=== PATIENT | male | born 1955 | race Caucasian/White ===

== ENCOUNTER 2023-02-17 05:35 | Emergency (ER) | payer OTHER ==
--- OUTSIDE RECORDS SUMMARY | 2023-02-17 05:39 | XMS REPORT | Clinical Summary ---
:1955 Author Organization [facility] MD [facility] Address [address] [place] [address] Care Team Providers Name Role Phone Luis E Woody MD Primary Care Provider Tim Au MD Unavailable Allergies No known active allergies Medications Medication Sig Dispensed Refills Start End Date Status Date multivitamin tab Take by mouth. 0 Active tablet Lacto 0 Active 51-B.animal,bifid-in 0 ulin (Fortify Probiotic) 50 billion cell-50 mg cpDR ibuprofen Take by mouth. 0 Activ e (ADVIL,MOTRIN) 200 mg tablet pseudoephedrine Take by mouth 0 Active (SUDAFED) 60 mg every 4 (four) tablet hours as needed for congestion. fexofenadine Take by mouth. 0 Ac tive (GILBERTO) 180 mg tablet sulfamethoxazole-tri TAKE 1 TABLET 0 Active methoprim (BACTRIM BY MOUTH TWICE 3 DS) 800 mg-160 mg A DAY FOR 10 per tablet DAYS sildenafil (Revatio) Take 90 tablet 11 Active 20 mg Sildenafil 3 tabletIndications: 20mg PO daily, Erectile dysfunction plus can add following radical upto 4pills prostatectomy (80mg) PO every 72 hours apart prn. Saccharomyces Take 1 capsule 0 10/09/19 D iscontinued boulardii (250 mg) by 23 (Therapy (FLORASTOR) 250 mg mouth twice completed) capsule daily. methocarbamol Take 1 tablet 10 tablet 0 01/23/20 Di scontinued (Robaxin-750) 750 mg (750 mg) by 3 23 tabletIndications: mouth every 8 Adenocarcinoma of (eight) hours prostate as needed for muscle spasms. traMADol (Ultram) 50 Take 1 tablet 10 tablet 0 01/22 Discontinued mg (50 mg) by 3 23 tabletIndications: mouth every 6 Adenocarcinoma of (six) hours as prostate needed for severe pain. senna-docusate Take 1 tablet 30 tablet 0 01/23/20 D iscontinued (Senna Plus) 8.6 by mouth 2 3 23 mg-50 mg (two) times a tabletIndications: day as needed Adenocarcinoma of for prostate constipation. hyoscyamine sulfate Dissolve 1 30 tablet 0 01/23/20 Discontinued (ANASPAZ) 0.125 mg tablet (0.125 3 23 disintegrating mg) on the tabletIndications: tongue every 4 Adenocarcinoma of (four) hours prostate as needed for cramping. Active Problems Problem Noted Date Adenocarcinoma of prostate 05/31/2021 Cancer Staging: Clinical stage from 10/09: Stage IIB (cT2a, cN0, cM0, PSA: 3.2, Grade Group: 2) - Signed by Tim Au MD on 10/09/2022 Elevated blood pressure reading with no diagnosis of h ypertension 08/24/2016 Overview: primarily due to work stress, generally resolved Last Assessment & Plan: Does not take medication , continue to m onitor and follow-up with primary care provider Hypertension 08/24/2016 Overview: primarily due to work stress, generally resolved Bradycardia 12/08/2015 Irregular heart beat 11/23/2015 Overview: bradycardia with sinus pause Last Assessment & Plan: Takes no medications. 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 Acute postoperative pain Encounters Date Type Specialty Care Team Description 01/27/2023 Hospital Encounter Lab Michelet Mitchell Adenocarc [place] MD prostate 01/22/2023 Consult Urology Remington Vizcaino MD Erectile dysfu nction following radical prostatectomy (Primary Dx); Adenocarcinoma of prostate 01/22/2023 Hospital Encounter Lab Kandathil, Urinary t ract Rajesh, PA infection, not otherwise speci fied 01/22/2023 Travel 01/21/2023 Orders Only Urology Kandathil, Urinary tract Rajesh, PA infection, not otherwise speci fied (Primary Dx) 12/17/2022 Nurse Triage Sowmya Fajardo RN 12/15/2022 Surgery Michelet Mitchell ROBOTIC QUINTIN Main MD PROSTATECTOMY 12/15/2022 Anesthesia Event Jade Faye MD Lumsden, Sarah, MD 12/15/2022 Ancillary Procedure Calin Shirley MD 12/15/2022 - Hospital Encounter Uro/Ortho/GI Michelet Mitchell Adenocarc inoma of 12/16/2022 MD Jose David prostate (Prima ry Dx) 12/15/2022 Travel 12/12/2022 Anesthesia Event Anesthesiology Angela Hood MA 12/10/2022 Hospital Encounter Cardiology Moise Bauer Pre op cardiovascular MD Raisa examination 12/10/2022 Travel 12/09/2022 POEM Appointments Anesthesiology Kandathil, Pre op c ardiovascular examination (Primary Dx); Rajesh PA Adenocarcinoma of prostate 12/09/2022 Office Visit Urology Michelet Mitchell MD prostate (Prima ry Dx) 12/09/2022 Hospital Encounter Lab Kandathil, Adenocarc inoma of Rajesh, PA prostate 12/09/2022 Travel 10/28/2022 Prep for Surgery Urology Kandathil, Adenocarcin earline of Rajesh, PA prostate (Prima ry Dx) 10/28/2022 Orders Only Urology Kandathil, Adenocarcinoma of Rajesh, PA prostate (Prima ry Dx) 10/27/2022 Telemedicine Urology Michelet Mitchell MD prostate 10/15/2022 Telephone Urology Anali Estrada PA 10/13/2022 Telephone Urology Anali Estrada PA 10/09/2022 Hospital Encounter Radiation Oncology Chiara Au nocarcinoma of MD Tim prostate 10/09/2022 Travel 10/03/2022 Follow-Up Urology Luis E Woody, Adenocarcinom a of prostate 10/03/2022 Travel 10/02/2022 Ancillary Procedure Radiology Anali Estrada Adenocar cinoma of LOYDA Fuentes prostate 10/02/2022 Hospital Encounter Lab Anali Estrada Adenocarc inoma of LOYDA Fuentes prostate 10/02/2022 Travel 04/04/2022 Hospital Encounter Lab Anali Estrada Adenocarc inoma of LOYDA Fuentes prostate 04/04/2022 Office Visit Urology Luis E Woody, Adenocarcinom a of prostate 04/04/2022 Orders Only Urology Anali Estrada PA 04/04/2022 Travel 02/25/2022 Orders Only Survivorship Anali Estrada Adenocarcinoma of LOYDA Fuentes prostate (Prima ry Dx) after 02/17/2022 Surgical History Surgery Date Site/Laterality Comments COLONOSCOPY 05/24/2020 - 06/23/2020 [place] L[place] SURG [id number] 12/15/2022 Abdomen/N/A Proc edure: ROBOTIC RAD W/NRV SPARING ROBOT ASSISTED PROSTATECTOMY; Surgeon: Michelet Mitchell MD; Location: [place]; Service: UROLOGY Medical History Medical History Date Comments Hypertension 2016 primarily due to wor k stress, generally resolved Irregular heart beat November 2015 bradycardia with si nus pause Loss of sense of smell over last several years not complete loss, but impaired Allergic rhinitis ~1979 Polyp of colon ~2019 found during colonos copy. Also found lump on prosta te Genital herpes simplex ~1988? no sores in over 20-25 years Herpes zoster ~1978 single outbreak Malignant neoplasm of prostate 2019 Family History Medical History Relation Name Comments Prostate cancer Father Jeff Szymanski diagnosed in 70 s, had brachytherapy; d ied of other causes Leukemia Mother Yulissa Szymanski adult onset in m id-60s Prostate cancer Paternal Uncle 1 Frank Szymanski Prostate cancer Paternal Uncle 2 Jovani Szymanski decided not to treat and later of it Prostate cancer Paternal Uncle 3 Arias Szymanski Relation Name Status Comments Father Jeff Szymanski Mother Yulissa Szymanski Paternal Uncle 1 Frank Szymanski Paternal Uncle 2 Jovani Szymanski Paternal Uncle 3 Arias Szymanski Social History Tobacco Use Types Packs/Day Years Used Date Smoking Tobacco: Never Smokeless Tobacco: Never Alcohol Use Standard Drinks/Week Comments Yes 2 (1 standard drink = 0.6 oz pure alcoho l) Sex Assigned at Date Recorded Male 05/21/2021 8:15 PM CDT Job Start Date Occupation Industry Not on file Not on file Not on file COVID-19 Exposure Response Date Recorded In the last 10 days, have you been in contact with No / Unsu re 01/22/2023 9:47 AM CDT someone who was confirmed or suspected to have Coronavirus/COVID-19? Obstetrics History Last Filed Vital Signs Vital Sign Reading Time Taken Comments Blood Pressure 138/80 01/22/2023 9:58 AM CDT Pulse 65 01/22/2023 9:58 AM CDT Temperature 37.2 C (99 F) 01/22/2023 9:58 AM CDT Respiratory Rate 16 01/22/2023 9:58 AM CDT Oxygen Saturation 97% 01/22/2023 9:58 AM CDT Inhaled Oxygen Concentration - - Weight 91.2 kg (201 lb 1 oz) 01/22/2023 9:51 AM CDT Height 186 cm (6' 1.23") 01/22/2023 9:51 AM CDT Body Mass Index 26.36 01/22/2023 9:51 AM CDT Plan of Treatment Date Type Specialty Care Team Description 03/19/2023 Procedure visit Urology Remington Vizcaino MD [address] [place], [place] [address] (Wo rk) 03/24/2023 Follow-Up Urology Michelet Mitchell MD [address] [place], [place] [address] (Wo rk) Health Maintenance Due Date Last Done Comments COVID-19 Vaccination (3 - Moderna series) 12/22/20202020, 09/29/2020 Procedures Procedure Name Priority Date/Time Associated Diagnosis Comme nts PROSTATE SPECIFIC Routine 01/27/2023 10:39 Adenocarcinoma of R esults for this ANTIGEN AM CDT prostate procedure are i n the results section. URINALYSI W/REFLEX Routine 01/22/2023 8:59 Urinary tract Resul ts for this CULTURE AM CDT infection, not procedure are in otherwise specified the resu lts section. ANION GAP AM 12/16/2022 3:40 Results for this AM CDT procedure are i n the results section. .GLOMERULAR FILTRATION AM 12/16/2022 3:40 Re sults for this RATE AM CDT procedure are i n the results section. SERUM CREATININE AM 12/16/2022 3:40 Results for this AM CDT procedure are i n the results section. HEMATOCRIT AM 12/16/2022 3:40 Results for this AM CDT procedure are i n the results section. HEMOGLOBIN AM 12/16/2022 3:40 Results for this AM CDT procedure are i n the results section. GLUCOSE, RANDOM AM 12/16/2022 3:40 Results f or this AM CDT procedure are i n the results section. SERUM CREATININE AM 12/16/2022 3:40 AM CDT BLOOD UREA NITROGEN AM 12/16/2022 3:40 Resul ts for this AM CDT procedure are i n the results section. CARBON DIOXIDE LEVEL AM 12/16/2022 3:40 Resu lts for this AM CDT procedure are i n the results section. CHLORIDE LEVEL AM 12/16/2022 3:40 Results fo r this AM CDT procedure are i n the results section. POTASSIUM LEVEL AM 12/16/2022 3:40 Results f or this AM CDT procedure are i n the results section. SODIUM LEVEL AM 12/16/2022 3:40 Results for this AM CDT procedure are i n the results section. HEMATOCRIT Routine 12/15/2022 10:50 Results for this AM CDT procedure are i n the results section. HEMOGLOBIN Routine 12/15/2022 10:50 Results for this AM CDT procedure are i n the results section. PATHOLOGY SURGICAL Routine 12/15/2022 9:45 Adenocarcinoma of R esults for this INTERPRETATION AM CDT prostate procedure are in the results section. PERIPHERAL BLOCK Routine 12/15/2022 7:10 Results for this AM CDT procedure are i n the results section. ROBOTIC ASSISTED 12/15/2022 6:28 Adenocarcinoma of PROSTATECTOMY AM CDT prostate Special Needs 0500@LR TMP INTERPRETATION Routine 12/15/2022 5:44 Result s for this ANTIBODY SCREEN AM CDT procedure ar e in NEGATIVE the results section. CLOT EXPIRATION DATE Routine 12/15/2022 5:44 Resu lts for this AM CDT procedure are i n the results section. ANTIBODY SCREEN Routine 12/15/2022 5:44 Results f or this AM CDT procedure are i n the results section. ABORH Routine 12/15/2022 5:44 Results for this AM CDT procedure are i n the results section. TYPE AND SCREEN Routine 12/15/2022 5:44 AM CDT INTRAOPERATIVE US Routine 12/15/2022 5:28 Results for this AM CDT procedure are i n the results section. EKG, 12-LEAD Routine 12/10/2022 Pre op cardiovascular (SCHEDULED) examination URINALYSI W/REFLEX Routine 12/09/2022 10:23 Adenocarcinoma of Results for this CULTURE AM CDT prostate procedure are i n the results section. TMP INTERPRETATION Routine 12/09/2022 10:12 Resul ts for this ANTIBODY SCREEN AM CDT procedure ar e in NEGATIVE the results section. CLOT EXPIRATION DATE Routine 12/09/2022 10:12 Res ults for this AM CDT procedure are i n the results section. ANTIBODY SCREEN Routine 12/09/2022 10:12 Adenocarcinoma of Res ults for this AM CDT prostate procedure are i n the results section. ABORH Routine 12/09/2022 10:12 Adenocarcinoma of Result s for this AM CDT prostate procedure are i n the results section. FRACTIONATED BILIRUBIN Routine 12/09/2022 10:12 Adenocarcinoma of Results for this AM CDT prostate procedure are i n the results section. TOTAL PROTEIN Routine 12/09/2022 10:12 Adenocarcinoma of Resul ts for this AM CDT prostate procedure are i n the results section. ASPARTATE Routine 12/09/2022 10:12 Adenocarcinoma of Result s for this AMINOTRANSFERASE AM CDT prostate procedure a re in the results section. ALANINE Routine 12/09/2022 10:12 Adenocarcinoma of Result s for this AMINOTRANSFERASE AM CDT prostate procedure a re in the results section. ALKALINE PHOSPHATASE Routine 12/09/2022 10:12 Adenocarcinoma o f Results for this AM CDT prostate procedure are i n the results section. ALBUMIN LEVEL Routine 12/09/2022 10:12 Adenocarcinoma of Resul ts for this AM CDT prostate procedure are i n the results section. CALCIUM LEVEL TOTAL Routine 12/09/2022 10:12 Adenocarcinoma of Results for this AM CDT prostate procedure are i n the results section. .GLOMERULAR FILTRATION Routine 12/09/2022 10:12 Adenocarcinoma of Results for this RATE AM CDT prostate procedure are i n the results section. SERUM CREATININE Routine 12/09/2022 10:12 Adenocarcinoma of Re sults for this AM CDT prostate procedure are i n the results section. ELECTROLYTE PANEL Routine 12/09/2022 10:12 Adenocarcinoma of R esults for this AM CDT prostate procedure are i n the results section. BLOOD UREA NITROGEN Routine 12/09/2022 10:12 Adenocarcinoma of Results for this AM CDT prostate procedure are i n the results section. GLUCOSE LEVEL Routine 12/09/2022 10:12 Adenocarcinoma of Resul ts for this AM CDT prostate procedure are i n the results section. MANUAL DIFFERENTIAL Routine 12/09/2022 10:12 Adenocarcinoma of Results for this AM CDT prostate procedure are i n the results section. Results CBC Routine 12/09/2022 10:12 Adenocarcinoma of Result s for this AM CDT prostate procedure are i n the results section. TYPE AND SCREEN Routine 12/09/2022 10:12 Adenocarcinoma of AM CDT prostate PROSTATE SPECIFIC Routine 12/09/2022 10:12 Adenocarcinoma of R esults for this ANTIGEN AM CDT prostate procedure are i n the results section. COMPREHENSIVE METABOLIC Routine 12/09/2022 10:12 Adenocarcinom a of PANEL AM CDT prostate HEMOGLOBIN A1C Routine 12/09/2022 10:12 Adenocarcinoma of Resu lts for this AM CDT prostate procedure are i n the results section. COMPLETE BLOOD COUNT W/ Routine 12/09/2022 10:12 Adenocarcinom a of DIFFERENTIAL AM CDT prostate CONFIRM ABORH TYPE Routine 12/09/2022 10:11 Resul ts for this AM CDT procedure are i n the results section. 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 PROSTATE SPECIFIC Routine 04/04/2022 11:28 Adenocarcinoma of R esults for this ANTIGEN AM CDT prostate procedure are i n the results section. after 02/17/2022 Results PSA (01/27/2023 10:39 AM CDT)Only the most recent of4 resultswithin the time period is included. P athologist Signature PSA <0.1 0.0 - 4.0 [facility] ng/mL Comment: Results greater than 4519 ng/mL may not be reliable due to matrix effect with extended dilution as it exceeds the incubator operator's recommended limit. Caution should be exercised when interpreting such hue ues and done in conjunction with clinica l context. Testing Performed at [facility] Bld[facility], [address], [address], [place] [address] PSA Indication Diagnostic [facility] Specimen Anatomical Collection Method Collection Time Receive d Time (Source) Location / / Volume Laterality Blood 01/27/2023 10:39 01/27/2023 AM CDT 10:52 AM CDT Michelet Mitchell MD LAB BLOOD ORDERABLES Performing Organization Address City/State/ZIP Code Phon e Number [facility] [address] [place] [address] [address] (ABNORMAL) Urinalysis with Reflex Culture (01/22/2023 8:59 AM CDT)Only the most recent of2 resultswithin the time period is included. athologist Signature UA Color Yellow [place] [facility] UA Appear Clear Clear [facility] UA Glucose NEG NEG mg/dL [facility] UA Bili NEG NEG [facility] UA Ketones NEG NEG mg/dL [facility] UA Spec Grav 1.035 1.003 - [facility] 1.035 [facility] UA Blood NEG NEG [facility] UA pH 6.0 5.0 - 9.0 [facility] UA Protein 20 (A) NEG mg/dL [facility] UA Urobilinogen NEG NEG [facility] UA Nitrite NEG NEG [facility] UA Leuk Est NEG NEG [facility] UA WBC <1 0 - 2 /HPF [facility] Comment: Some reporting parameters within the Uri nalysis test have changed due to the implementation of new instrumentation in the Main [place], allowing greater sensitivity of measurement. Urinalysis results rep orted by the [facility] using existing instrumentation, as well as Urinalysis t esting performed manually or by backup methodology at the [facility] will remain relatively unchanged. New reporting parameters and units will not be reported for all campuses. UA RBC <1 0 - 2 /HPF [facility] UA Mucous NOT SEEN Not Seen-Trace /HPF [facility] UA Bacteria NOT SEEN NOT SEEN /HPF [facility] UA Squam Epi NOT SEEN None-Occasional /HPF [facility] Specimen Anatomical Collection Method Collection Time Receive d Time (Source) Location / / Volume Laterality Urine 01/22/2023 8:59 AM 3 9:13 CDT AM CDT Rajesh SCALES URINE ORDERABLES Performing Organization Address City/State/ZIP Code Phon e Number [facility] Unless otherwise noted, [address] all lab tests performed by: Division of Pathology and Laboratory Medicine [address] [place] Glucose, Random (12/16/2022 3:40 AM CDT) athologist Signature Glucose Random 123 70 - 199 [facility] mg/dL [facility] Comment: Effective 03/19/16, the glucose reference intervals have been updated based on [place] [employer] guidelines (Standards of Medical Care in Diabetes 2016. Diabetes Care 2016; 39: S13-S22). Fasting blood glucose: Normal: 70-99 mg/dL Impaired fasting glucose (increased risk for diabetes or pre-diabetes): 100- 125 mg/dL Diabetes mellitus: >/=126 mg/dL Random blood glucose: Normal: 70-199 mg/dL Note: Random glucose >100 mg/dL is assoc iated with increased risk for diabetes Specimen Anatomical Collection Method Collection Time Receive d Time (Source) Location / / Volume Laterality Blood 12/16/2022 3:40 AM 3 4:43 CDT AM CDT Farida SCALES LAB BLOOD ORDERABLES Performing Organization Address City/State/ZIP Code Phon e Number [facility] Unless otherwise noted, [address] all lab tests performed by: Division of Pathology and Laboratory Medicine [address] Anion Gap (12/16/2022 3:40 AM CDT) athologist Signature Anion Gap 10 4 - 14 [facility] mEq/L [facility] Specimen Anatomical Collection Method Collection Time Receive d Time (Source) Location / / Volume Laterality Blood 12/16/2022 3:40 AM 3 4:43 CDT AM CDT Farida SCALES LAB BLOOD ORDERABLES Performing Organization Address City/State/ZIP Code Phon e Number [facility] Unless otherwise noted, [address] all lab tests performed by: Division of Pathology and Laboratory Medicine [address] [place] [address] .Serum Creatinine (12/16/2022 3:40 AM CDT)Only the most recent of2 resultswithin the time period is included. athologist Signature Creatinine 1.07 0.67 - 1.17 [facility] mg/dL [facility] Specimen Anatomical Collection Method Collection Time Receive d Time (Source) Location / / Volume Laterality Blood 12/16/2022 3:40 AM 4:43 CDT AM CDT Farida SCALES LAB BLOOD ORDERABLES Performing Organization Address City/State/ZIP Code Phon e Number [facility] Unless otherwise noted, [address] all lab tests performed by: Division of Pathology and Laboratory Medicine [facility] Glomerular Filtration Rate (12/16/2022 3:40 AM CDT)Only the most recent of2 resultswithin the time period is included. athologist Signature eGFR 77 >=60 [facility] mL/min/1.73 [facility] sq. m Comment: The eGFRcr is calculated with the 2020 KD-EPI creatinine equation using creatinine, patient's age, and sex for adults 18 years of age and older. Other factors, especially muscle mass, may affect accuracy and need to be considered. According to the Kidney Disease: Improvi ng Global Outcomes (KDIGO) CKD Work Group 2012 Clinical Practice Guideline, chronic kidney disease (CKD) is defined as the abnormalities of kidney structure or function, present for more than 3 months, with implications for health. CKD should be c lassified by cause, GFR category, and albuminuria category. KDIGO guidelines provide the following GFR categories Stage Description GFR mL/min/1.73 m2 G1* Normal or high >= 90 G2* Mildly decreased 60-89 G3a Mildly to moderately decreased 45-59 G3b Moderately to severely decreased 30- 44 G4 Severely decreased 15-29 G5 Kidney failure <15 *In the absence of evidence of kidney da mage, neither G1 nor G2 fulfill criteria for CKD. Specimen Anatomical Collection Method Collection Time Receive d Time (Source) Location / / Volume Laterality Blood 12/16/2022 3:40 AM 3 4:43 CDT AM CDT Farida Kessler Keyla SCALES LAB BLOOD ORDERABLES Performing Organization Address City/[facility]/ZIP [facility] Phon e Number [facility] Unless otherwise noted, [address] all lab tests performed by: Division of Pathology and Laboratory Medicine [address] [place] (ABNORMAL) Hemoglobin (12/16/2022 3:40 AM CDT)Only the most recent of2 results within the time period is included. athologist Signature Hgb 12.6 (L) 14.0 - 18.0 [facility] gm/dL [facility] Specimen Anatomical Collection Method Collection Time Receive d Time (Source) Location / / Volume Laterality Blood 12/16/2022 3:40 AM 3 4:39 CDT AM CDT Farida Kirbyalba SCALES LAB BLOOD ORDERABLES Performing Organization Address [facility] Phon e Number [facility] Unless otherwise noted, [address] all lab tests performed by: Division of Pathology and Laboratory Medicine [facility] [place] (ABNORMAL) Hematocrit (12/16/2022 3:40 AM CDT)Only the most recent of2 results within the time period is included. P athologist Signature Hct 37.2 (L) 40.0 - 54.0 [facility] % [facility] Specimen Anatomical Collection Method Collection Time Receive d Time (Source) Location / / Volume Laterality Blood 12/16/2022 3:40 AM 3 4:39 CDT AM CDT Farida Victoria SCALES LAB BLOOD ORDERABLES Performing Organization Address City/[facility] Phon e Number [facility] Unless otherwise noted, [address] all lab tests performed by: Division of Pathology and Laboratory Medicine [facility] [place] Blood Urea Nitrogen (12/16/2022 3:40 AM CDT)Only the most recent of2 results within the time period is included. athologist Signature BUN 19 6 - 23 [facility] mg/dL [facility] Specimen Anatomical Collection Method Collection Time Receive d Time (Source) Location / / Volume Laterality Blood 12/16/2022 3:40 AM 3 4:43 CDT AM CDT Farida SCALES LAB BLOOD ORDERABLES Performing Organization Address City/[facility]/ZIP Code Phon e Number [facility] Unless otherwise noted, [address] all lab tests performed by: Division of Pathology and Laboratory Medicine [address] [place] Sodium Level (12/16/2022 3:40 AM CDT) athologist Signature Sodium Lvl 136 136 - 145 [facility] mEq/L [facility] Specimen Anatomical Collection Method Collection Time Receive d Time (Source) Location / / Volume Laterality Blood 12/16/2022 3:40 AM 3 4:43 CDT AM CDT Farida SCALES LAB BLOOD ORDERABLES Performing Organization Address City/[facility]/ZIP Code Phon e Number [facility] Unless otherwise noted, [address] all lab tests performed by: Division of Pathology and Laboratory Medicine [address] [place] Potassium Level (12/16/2022 3:40 AM CDT) athologist Signature Potassium Lvl 4.4 3.5 - 5.1 [facility] mEq/L [facility] Specimen Anatomical Collection Method Collection Time Receive d Time (Source) Location / / Volume Laterality Blood 12/16/2022 3:40 AM 3 4:43 CDT AM CDT Farida SCALES LAB BLOOD ORDERABLES Performing Organization Address City/State/ZIP Code Phon e Number [facility] Unless otherwise noted, [address] all lab tests performed by: Division of Pathology and Laboratory Medicine [address] [place] Chloride Level (12/16/2022 3:40 AM CDT) P athologist Signature Chloride 104 98 - 107 [facility] mEq/L [facility] Specimen Anatomical Collection Method Collection Time Receive d Time (Source) Location / / Volume Laterality Blood 12/16/2022 3:40 AM 3 4:43 CDT AM CDT Farida Burgoshi SCALES LAB BLOOD ORDERABLES Performing Organization Address City/State/ZIP Code Phon e Number [facility] Unless otherwise noted, [address] all lab tests performed by: Division of Pathology and Laboratory Medicine [address] [place] [address] Carbon Dioxide Level (12/16/2022 3:40 AM CDT) athologist Signature CO2 22 22 - 29 [facility] mEq/L [facility] Specimen Anatomical Collection Method Collection Time Receive d Time (Source) Location / / Volume Laterality Blood 12/16/2022 3:40 AM 4:43 CDT AM CDT Farida SCALES LAB BLOOD ORDERABLES Performing Organization Address City/[facility]/ZIP Code Phon e Number [facility] Unless otherwise noted, [address] all lab tests performed by: Division of Pathology and Laboratory Medicine [address] [place] [address] Pathology Surgical Interpretation (12/15/2022 9:45 AM CDT) Component Value Ref Test Analysis Performed Pathologis t Range Method Time At Signature Submitted Adenocarcinoma of 12/30/2022 [facility] Clinical prostate [C61] 7:17 AM History CDT Diagnosis A: Prostate gland and seminal vesicles: 12/30/2022 [facility] Electronically PROSTATIC ADENOCARCINOMA, MARS SCORE 7 (3+4). (SEE COMMEN T) 7:17 AM signed by TUMOR CONFINED TO THE PROSTATE. CDT Jazmine Right and left seminal vesicles, no tumor present. MD Jayesh on Segments of right and left vasa deferentia, no tumor present . 12/30/2022 at 7:17 TUMOR EXTENDS TO THE MARGIN OF RESECTION. AM No lymphovascular invasion identified. PT Comment The prostate gland contains two foci of prostatic adenocarcinoma in the peripheral zone. 12/30/2022 [facility] 7:17 AM The dominant tumor focus [Gl francesco score 7 (3 + 4)] is located in the left anterior, left anterolateral, left lateral, left posterolateral and left posterior peripheral zone. This tumor focus measures 1. CDT 7 x 1.0 cm in the largest cr oss-sectional dimension and it is present in the four prostatic cross sections, extensively in the apex and focally in the base. In the left posterolateral surface and tanning wheel operator ior apex, this tumor focus e xtends focally (added length 1.5 mm) to the margin of resection. The second tumor focus [Channinga son score 7 (3 + 4)] is located in the right anterolateral, right lateral, right posterolateral and right posterior peripheral zone. This tumor focus measures 1.4 x 0.5 cm in the largest cross-sectional dimension and it is present in the four prostatic cross sections and focally in the base. The margin of resection for this tumor focus is free of tumor. Both tumor foci are confined to the prostate. Additional deeper sections from two blocks were examined. Synoptic PROSTATE GLAND: Radical Prostatectomy [facility] Checklist PROSTATE GLAND: RADICAL PROSTATECTOMY - All Specimens 7:17 AM 8th Edition - Protocol posted: 07/03/2021 CDT SPECIMEN Procedure: Radical prostatectomy TUMOR Histologic Type: Acinar adenocarcinoma Histologic Grade: Grade: Grade group 2 (Mars Score 3 + 4 = 7) Minor Tertiary Pattern 5 (less than 5%): Not applicable Percentage of Pattern 4: 6 - 10% Intraductal Carcinoma (IDC): Not identified Cribriform Glands: Not identified Treatment Effect: No known presurgical therapy TUMOR QUANTITATION: Greatest Dimension of Dominant Nodule (Millimeters): 17 mm Additional Dimension of Dominant Nodule (Millimeters) : 10 mm Location of Dominant Nod ule: left anterior, left anterolateral, left lateral, left posterolateral and left posterior peripheral zone Extraprostatic Extension (EPE): Not identified Urinary Bladder Neck Invasion: Not identified Seminal Vesicle Invasion: Not identified Lymphovascular Invasion: Not Identified MARGINS Margin Status: Invasive carcinoma present at margin Linear Length of Margin(s) Involved by Carcinoma: 1 .5 mm Margin(s) Involved by In vasive Carcinoma: Left postero-lateral (neurovascular bundle) Margin(s) Involved by Invasive Carcinoma: Posterior apical REGIONAL LYMPH NODES Regional Lymph Node Status: Not applicable (no regional lymph nodes submitted or found) PATHOLOGIC STAGE CLASSIFICATION (pTNM, AJCC 8th Edition) Reporting of pT, pN, and (when applicable) pM categories is based on information available to the pathologist at the time the report is issued. As per the AJCC (Chapter 1, 8th Ed.) it is the managin g physician s responsibility to establish the final pathologic stage based upon all pertinent information, including but potentially not limited to this pathology report. TNM Descriptors: m (multiple) Primary Tumor (pT): pT2 pN Category: pN not assigned (no nodes submitted or fo und) Gross A: 12/30/2022 [facility] Description Prostate gland and seminal v esicles, prostate gland and seminal vesicles -- or 18: 7:17 AM CDT A specimen consisting of a p rostate, attached right and left seminal vesicles and attached segments of right and left vasa deferentia. The prostate gland (3.7 x 3 .4 x 3.6 cm, 16.5 grams, post-fixation) has the usual shape. The soft tissue present along the posterolateral aspects of the prostate is scant and symmetrical . Serial cross-sections after fixation demonstrate an area consistent with possible tumor involving the left anterolateral, left lateral, and left posterolateral region of the first prostatic cross section. The right seminal vesicle (4 .0 x 1.3 x 0.4 cm), left seminal vesicle (3.7 x 1.6 x 0.4 cm), and segments of vasa deferentia are grossly free of tumor. INK CODE: The anterior aspe ct of the prostate is inked in green, left surface in red, right surface in yellow, and posterior surface in black. SECTION CODE: A1, right and left vasa deferentia margin; A2, A3, base of right seminal vesicle and right vas deferens; A4, A5, base of left seminal vesicle and left vas deferens; A6, prostatic base, ri ght border; A7, prostatic ba se, right posterior border; A8 - A10, prostatic base, central portion; A11, A12, prostatic base, left border; A13, prostatic base, left posterior border; A14, apex anterior; A15, apex left; A16 - A18, a pex posterior; A19, apex right; A20 - A31, sections of the four cross sections of the prostate from apex to base. Blocks A10, A12, and A30 are submitted for decalcification. KZ/PT Biomarker Tumor: A25 12/30/2022 [facility] Block(s) Normal: A9 7:17 AM CDT Disclaimer "Some tests 12/30/2022 [facility] reported here may 7:17 AM have been CDT developed and performance characteristics determined by [facility] Pathology and Laboratory Medicine. These tests have not been specifically cleared or approved by the U.S. Food and Drug Administration. If applicable, controls were reviewed and showed appropriate reactivity." Specimen Anatomical Collection Method Collection Time Receive d Time (Source) Location / / Volume Laterality Tissue (Prostate 12/15/2022 9:45 AM 12/15 Gland and CDT 10:00 AM CDT Seminal Vesicles) Michelet Mitchell MD LAB PATHOLOGY ORDERABLES Performing Organization Address City/State/ZIP Code Phon e Number [facility] [place] [address] [address] [place] 2. Peripheral block (12/15/2022 7:10 AM CDT) Narrative Calin Shirley MD - 12/15/2022 7:10 AM CDT Calin Shirley MD 12/15/2022 7:51 AM 2. Peripheral block Quadratus Lumborum 1 End time: 12/15/2022 7:20 AM Patient location during procedure: OR Reason for block: at surgeon's request a nd post-op pain management Staffing Performed: acute pain service anesthesio logist Preanesthetic Checklist Completed: patient identified, site alma ed, surgical consent, pre-op evaluation, timeout performed, IV checke d, risks and benefits discussed and monitors and equipment checked Peripheral Block Patient position: supine Prep: alcohol/chlorhexidine gluconate sw ab 2% Maximal sterile barriers used: Yes Patient monitoring: heart rate, quality assurance monitor final and continuous pulse ox Block type: Quadratus Lumborum 1 Laterality: bilateral Injection technique: single-shot Procedures: ultrasound guided Needle Needle type: Pakevin Needle gauge: 22 G Needle length: 4 in Needle localization: ultrasound guidance Attempts: 1 Sterile dressing applied: Yes Medications Administered bupivacaine PF (SENSORCAINE,MARCAINE) 2. 5 mg/mL(0.25%) injection - peripheral nerve block 80 mL - 12/15/2022 7:10:00 AM dexAMETHasone PF (DECADRON) injection - peripheral nerve block 10 mg - 12/15/2022 7:10:00 AM dexMEDEtomidine (PRECEDEX) injection - p eripheral nerve block 50 mcg - 12/15/2022 7:10:00 AM Med File Time: 12/15/2022 7:10 AM Assessment Injection assessment: negative aspiratio n for heme, no paresthesia on injection, incremental injection and loc al visualized surrounding nerve on ultrasound Paresthesia pain: none Heart rate change: no Slow fractionated injection: yes Events: no acute complications Jade Faye MD ANESTHESIA ORDERABLES Clot Expiration Date (12/15/2022 5:44 AM CDT)Only the most recent of2 results within the time period is included. [facility] Signature T & S 12/18/2022 [facility] Specimen Anatomical Collection Method Collection Time Receive d Time (Source) Location / / Volume Laterality Blood 12/15/2022 5:44 AM 3 6:42 CDT AM CDT Michelet Mitchell MD BLOOD BANK TEST ORDERABLES Performing Organization Address City/[facility] Phon e Number [facility] Unless otherwise noted, [address] all lab tests performed by: Division of Pathology and Laboratory Medicine [address] [place] [address] TMP Interpretation Antibody Screen Negative (12/15/2022 5:44 AM CDT)Only the most recent of2 resultswithin the time period is included. [facility] TMP Auto Neg At the [facility] patient plasma shows no evidence of RBC alloantibodi es. Comment: SILVANA VIRK MD, PhD - [id number] Dictated by: SILVANA VIRK MD, Ph D - [id number] Dictated Date/Time: 12.15.2022 10:06 AM CDT Transcribed Date/Time: 12.15.2022 10:06 AM CDT Electronically Signed By: SILVANA VIRK MD, PhD - [id number] on 12.15.2022 10:06 AM Specimen Anatomical Collection Method Collection Time Receive d Time (Source) Location / / Volume Laterality Blood 12/15/2022 5:44 AM 3 6:42 CDT AM CDT Michelet Mitchell MD BLOOD BANK TEST ORDERABLES Performing Organization Address City/[facility] Phon e Number [facility] Unless otherwise noted, [address] all lab tests performed by: Division of Pathology and Laboratory Medicine [facility] Miamid ABORh (12/15/2022 5:44 AM CDT)Only the most recent of2 resultswithin the time period is included. P athologist Signature ABORh. A POS [facility] Specimen Anatomical Collection Method Collection Time Receive d Time (Source) Location / / Volume Laterality Blood 12/15/2022 5:44 AM 3 6:42 CDT AM CDT Michelet Mitchell MD BLOOD BANK TEST ORDERABLES Performing Organization Address City/[facility]/ZIP [facility] Phon e Number [facility] Unless otherwise noted, [address] all lab tests performed by: Division of Pathology and Laboratory Medicine [address] [place] [address] Antibody Screen (12/15/2022 5:44 AM CDT)Only the most recent of2 resultswithin the time period is included. athologist [facility] ABSC. Negative ABSC [facility] Specimen Anatomical Collection Method Collection Time Receive d Time (Source) Location / / Volume Laterality Blood 12/15/2022 5:44 AM 3 6:42 CDT AM CDT Michelet Mitchell MD BLOOD BANK TEST ORDERABLES Performing Organization Address City/[facility] Phon e Number [facility] Unless otherwise noted, [address] all lab tests performed by: Division of Pathology and Laboratory Medicine [address] [place] [address] Intraoperative Ultrasound (12/15/2022 5:28 AM CDT) Specimen (Source) Anatomical Location Collection Method / Collectio n Time Received Time / Laterality Volume Narrative Systemgenerated, Documentation - 023 5:28 AM CDT This procedure requires no interpretatio n from the radiologist. Calin Shirley MD IMG NON DI ORDERABLES EKG, 12-Lead (Scheduled) (12/10/2022) Specimen (Source) Anatomical Location Collection Method / Collectio n Time Received Time / Laterality Volume Narrative This result has an attachment that is no t available. Moise Bauer MD ECG ORDERABLES Performing Organization Address City/[facility]/ZIP Code Phon e Number [facility] IECG (ABNORMAL) .CBC (12/09/2022 10:12 AM CDT) P athologist Signature WBC 8.3 4.0 - 11.0 [facility] K/uL RBC 4.81 4.50 - 6.00 [facility] M/uL Hgb 14.6 14.0 - 18.0 [facility] gm/dL Comment: As part of CBC or as an individ ual orderable testing performed at [facility], [address] [place] [address] , [address], [place] [address] Hct 44.1 40.0 - 54.0 % [facility] Comment: As part of CBC or as an individ ual orderable testing performed at [facility], [address] [place] [address] , [address], [place] [address] MCV 92 82 - 98 fL [facility] MCH 30.4 27.0 - 31.0 pg [facility] MCHC 33.1 31.0 - 36.0 gm/dL [facility] RDW-SD 43.3 35.1 - 46.3 fL [facility] RDW-CV 13.0 12.0 - 15.5 % [facility] Platelet count 218 140 - 440 K/uL [facility] Comment: As part of CBC or as an individ ual orderable testing performed at [facility], [address] [place] [address] , [address], [place] [address] MPV 10.9 (H) 4.0 - 10.4 fL [facility] INRBC 0.0 <=0.0 % [facility] Comment: The INRBC (instrument NRBC) value reflec ts the enumeration of nucleated red blood cells contained i n a 200uL sample of whole blood analyzed by the instrumen t. This value may differ from the NRBC value reported in a manual differential, which is based on a 100 cell differentia l. As part of CBC testing performed at [address], [address], [place] [address] Specimen Anatomical Collection Method Collection Time Receive d Time (Source) Location / / Volume Laterality Blood 12/09/2022 10:12 12/09/2022 AM CDT 10:36 AM CDT Rajesh SCALES LAB BLOOD ORDERABLES Performing Organization Address [facility]/ZIP [facility] Phon e Number [facility] [address] [facility] [place] [address] [address] Fractionated Bilirubin (12/09/2022 10:12 AM CDT) athologist Signature Bili Total 0.5 <=1.2 mg/dL [facility] Comment: Indocyanine Green (ICG) may cause falsel y elevated bilirubin results. Total and direct bilirubin must not be measured from samples containing indocyanine green. False elevation of total bilirubin can b e seen in patients with IgG concentrations above 28 g/L. Testing Performed at [facility], [address] [facility], [address], [place] [address] Bili Direct <0.2 <=0.3 mg/dL [facility] Comment: Indocyanine Green (ICG) may cause falsel y elevated bilirubin results. Total and direct bilirubin must not be measured from samples containing indocyanine green. Testing Performed at [facility], [address] [facility], [address], [place] [address] Bili Indirect See Note 0.0 - 0.9 mg/dL [facility] Comment: Unable to calculate Indirect Bilirubin r esult due to some parameters are outside reportable range Testing Performed at [facility], [address] [facility], [address], [place] [address] Specimen Anatomical Collection Method Collection Time Receive d Time (Source) Location / / Volume Laterality Blood 12/09/2022 10:12 12/09/2022 AM CDT 10:45 AM CDT Rajesh SCALES LAB BLOOD ORDERABLES Performing Organization Address [facility]/ZIP [facility] Phon e Number [facility] [address] [facility] [place] [address] [address] (ABNORMAL) Differential (12/09/2022 10:12 AM CDT) athologist Signature Neutrophil % 66.6 (H) 42.0 - [facility] 66.0 % Comment: As part of Differential perform ed at [facility] Care [facility], [address] [facility], [address], [place] [address] Lymphocyte % 20.1 (L) 24.0 - 44.0 % [facility] Monocyte % 9.9 (H) 2.0 - 7.0 % [facility] Eosinophil % 2.1 1.0 - 4.0 % [facility] Basophil % 0.6 0.0 - 1.0 % [facility] IGRE % 0.7 (H) 0.0 - 0.4 % [facility] Comment: IGRE % count includes Metamyelocytes, My elocytes, and Promyelocytes. As part of Differential performed at [facility], [address] [place] [address], [address], [place] [address] Neutrophil Abs 5.51 1.70 - 7.30 K/uL [facility] Lymphocyte Abs 1.66 1.00 - 4.80 K/uL [facility] Monocyte Abs 0.82 (H) 0.08 - 0.70 K/uL [facility] Eosinophil Abs 0.17 0.04 - 0.40 K/uL [facility] Basophil Abs 0.05 0.00 - 0.10 K/uL [facility] IG Abs 0.06 (H) 0.00 - 0.04 K/uL [facility] Specimen Anatomical Collection Method Collection Time Receive d Time (Source) Location / / Volume Laterality Blood 12/09/2022 10:12 12/09/2022 AM CDT 10:36 AM CDT Rajesh SCALES LAB BLOOD ORDERABLES Performing Organization Address City/State/ZIP Code Phon e Number [address] [place] [address] [address] ALT (12/09/2022 10:12 AM CDT) P athologist Signature ALT 24 <=41 U/L [facility] Comment: Testing Performed at [facility] Lab [facility], [address] [place] [address], [address], [place] [address] Specimen Anatomical Collection Method Collection Time Receive d Time (Source) Location / / Volume Laterality Blood 12/09/2022 10:12 12/09/2022 AM CDT 10:45 AM CDT Rajesh SCALES LAB BLOOD ORDERABLES Performing Organization Address City/State/ZIP Code Phon e Number [address] [place] [address] [address] Aspartate Aminotransferase (12/09/2022 10:12 AM CDT) athologist Signature AST 29 <=40 U/L [facility] Comment: Testing Performed at [facility], [address] [facility], [address], [place] [address] Specimen Anatomical Collection Method Collection Time Receive d Time (Source) Location / / Volume Laterality Blood 12/09/2022 10:12 12/09/2022 AM CDT 10:45 AM CDT Rajesh SCALES LAB BLOOD ORDERABLES Performing Organization Address City/[facility]/ZIP Code Phon e Number [facility] [address] [facility] [place] [address] [address] Total Protein (12/09/2022 10:12 AM CDT) athologist Signature Total Protein 6.7 6.4 - 8.3 [facility] g/dL Comment: Testing Performed at [facility] Lab [facility], [address] [facility], [address], [place] [address] Specimen Anatomical Collection Method Collection Time Receive d Time (Source) Location / / Volume Laterality Blood 12/09/2022 10:12 12/09/2022 AM CDT 10:45 AM CDT Rajesh SCALES LAB BLOOD ORDERABLES Performing Organization Address City/[facility]/ZIP Code Phon e Number [facility] [address] [facility] [place] [address] [address] Alkaline Phosphatase (12/09/2022 10:12 AM CDT) athologist Signature Alk Phos 80 40 - 129 U/L [facility] Comment: Testing Performed at B [facility], [address] [facility], [address], [place] [address] Specimen Anatomical Collection Method Collection Time Receive d Time (Source) Location / / Volume Laterality Blood 12/09/2022 10:12 12/09/2022 AM CDT 10:45 AM CDT Rajesh SCALES LAB BLOOD ORDERABLES Performing Organization Address City/[facility]/ZIP Code Phon e Number [facility] [address] [facility] [place] [address] [address] Hemoglobin A1c (12/09/2022 10:12 AM CDT) athologist Signature A1C 5.2 4.3 - 5.6 % [facility] [place] Comment: HbA1c values >=6.5% are diagnostic of di abetes mellitus. Diagnosis should be confirmed by repeat testing. Therapeutic Action suggested: >8.0% HbA1 c; Goal of therapy: <7.0% HbA1c Specimen Anatomical Collection Method Collection Time Receive d Time (Source) Location / / Volume Laterality Blood 12/09/2022 10:12 12/09/2022 AM CDT 11:03 AM CDT Rajesh SCALES LAB BLOOD ORDERABLES Performing Organization Address City/State/ZIP Code Phon e Number [facility] Unless otherwise noted, [place] [address] CENTER all lab tests performed by: Division of Pathology and Laboratory Medicine [address] [place] [address] Glucose Level (12/09/2022 10:12 AM CDT) athologist Signature Glucose Level 91 70 - 99 [facility] mg/dL Comment: Effective 03/19/16, the glucose reference intervals have been updated based on [place] [employer] guidelines (Standards of Medical Care in Diabetes 2016. Diabetes Care 2016; 39: S13-S22). Fasting blood glucose: Normal: 70-99 mg/dL Impaired fasting glucose (increased risk for diabetes or pre-diabetes): 100- 125 mg/dL Diabetes mellitus: >/=126 mg/dL Random blood glucose: Normal: 70-199 mg/dL Note: Random glucose >100 mg/dL is assoc iated with increased risk for diabetes Testing Performed at [facility], [address] [place] [address], [address], [place] [address] Specimen Anatomical Collection Method Collection Time Receive d Time (Source) Location / / Volume Laterality Blood 12/09/2022 10:12 12/09/2022 AM CDT 10:45 AM CDT Rajesh SCALES LAB BLOOD ORDERABLES Performing Organization Address City/State/ZIP Code Phon e Number [address] [place] [address] [address] Calcium Level (12/09/2022 10:12 AM CDT) athologist Signature Calcium Lvl 9.2 8.4 - 10.2 [facility] mg/dL Comment: Testing Performed at [facility], [address], [place] [address] Specimen Anatomical Collection Method Collection Time Receive d Time (Source) Location / / Volume Laterality Blood 12/09/2022 10:12 12/09/2022 AM CDT 10:45 AM CDT Rajesh SCALES LAB BLOOD ORDERABLES Performing Organization Address City/[facility]/ZIP Code Phon e Number [facility] [address] [facility] [place] [address] [address] Albumin Level (12/09/2022 10:12 AM CDT) P athologist Signature Albumin Lvl 4.1 3.5 - 5.2 [facility] gm/dL Comment: Testing Performed at [facility], [address] [facility], [place] [address] Specimen Anatomical Collection Method Collection Time Receive d Time (Source) Location / / Volume Laterality Blood 12/09/2022 10:12 12/09/2022 AM CDT 10:45 AM CDT Rajesh SCALES LAB BLOOD ORDERABLES Performing Organization Address City/[facility]/ZIP Code Phon e Number [facility] [address] [facility] [place] [address] [address] Electrolyte Panel (12/09/2022 10:12 AM CDT) P athologist Signature Sodium Lvl 140 136 - 145 [facility] mEq/L Comment: Testing Performed at [facility] Am [facility], [address], [address], [place] [address] Potassium Lvl 4.0 3.5 - 5.1 mEq/L [facility] Comment: Testing Performed at [facility] Am [facility], [address], [address], [place] [address] Chloride 106 98 - 107 mEq/L [facility] Comment: Testing Performed at [facility] Am [facility], [address], [address], [place] [address] CO2 25 22 - 29 mEq/L [facility] Comment: Testing Performed at [facility] Am [facility], [address] [facility], [address], [place] [address] Anion Gap 9 4 - 14 mEq/L [facility] Comment: Testing Performed at [facility], [address], [address], [place] [address] Specimen Anatomical Collection Method Collection Time Receive d Time (Source) Location / / Volume Laterality Blood 12/09/2022 10:12 12/09/2022 AM CDT 10:45 AM CDT Rajesh SCALES LAB BLOOD ORDERABLES Performing Organization Address City/State/ZIP Code Phon e Number [facility] [address] [place] [place] [address] [address] Confirm ABORh (12/09/2022 10:11 AM CDT) P athologist Signature ABORh Confirm. A POS [facility] Specimen Anatomical Collection Method Collection Time Receive d Time (Source) Location / / Volume Laterality Blood 12/09/2022 10:11 12/09/2022 AM CDT 11:48 AM CDT Rajesh SCALES BLOOD BANK TEST ORDERABLES Performing Organization Address City/State/ZIP Code Phon e Number [facility] Unless otherwise noted, [place] [address] CENTER all lab tests performed by: Division of Pathology and Laboratory Medicine [address] [place] [address] MRI Pelvis with and without Contrast - Prostate (10/02/2022 1:26 PM MIDDLEWARE ENGINEER) Anatomical Region Laterality Modality Pelvis Magnetic Resonance Specimen (Source) Anatomical Collection Method Collection Time Re ceived Time Location / / Volume Laterality 10/02/2022 2:02 PM MIDDLEWARE ENGINEER Impressions 10/02/2022 4:40 PM MIDDLEWARE ENGINEER Interval increase in size of left apical peripheral zone lesion with signal characteristics of clinically significant prostate carcinoma. OVERALL PI-RADS category: 5. I personally reviewed these image(s) sharlene fields with the resident's/fellow's interpretations, certify that if a procedure was performed I was physically present, and agree with the final report. Narrative 10/02/2022 4:40 PM MIDDLEWARE ENGINEER Examination: MRI PELVIS W WO CONTRAST IL OSTATE on 10/02/2022 1:26 PM Clinical History: 67-year-old male with prostate adenocarcinoma undergoing surveillance. PSA: 3.4 ng/mL. Indication: Assess for interval change G leason Grade 2 prostate cancer on Active Surveillance since 2019 Willow score: 7 (3+4). Comparison: MRI dated 06/21/2021 Prior therapy: none Technique: Prostate MRI acquired at 3 T with an endorectal coil. Three-plane localizer, axial T1W and axial DWI with ADC reconstruction of the pelvis were performed. Three plane T2W, axial T1W, and ax ial DWI with ADC reconstruction of the p rostate were performed. Axial dynamic contrast-enhanced images were acquired of the prostate. Image quality: Acceptable. Motion artifa ct: Mild. Findings: Prostate measurement (3-plane): 4.7 x 2. 1 x 4.1 cm (transverse by AP by craniocaudal). Hemorrhage: None Benign prostatic hypertrophy: Moderate Lesion # 1 measures 1.7 cm and is locate d in the left peripheral zone at the level of the near apex on: Image # 24, series 550. Location: 2-4 o'clock Extra-prostatic disease or neurovascular bundle invasion: not found Lesion overall PI-RADS Category: 5. Patchy bilateral T2 peripheral zone hypo intensities, likely related to prostatitis. Lymphadenopathy: not found No clear involvement of the bladder neck , distal sphincter, or rectum. No seminal vesicle invasion. Bone lesions: not found Other: Sigmoid diverticulosis.. Procedure Note Vishnu Muller MD - 10/02/2022Form atting of this note might be different from the original. Examination: MRI PELVIS W WO CONTRAST IL OSTATE on 10/02/2022 1:26 PM Clinical History: 67-year-old male with prostate adenocarcinoma undergoing surveillance. PSA: 3.4 ng/mL. Indication: Assess for interval change G leason Grade 2 prostate cancer on Active Surveillance since 2019 Willow score: 7 (3+4). Comparison: MRI dated 06/21/2021 Prior therapy: none Technique: Prostate MRI acquired at 3 T with an endorectal coil. Three-plane localizer, axial T1W and axial DWI with ADC reconstruction of the pelvis were performed. Three plane T2W, axial T1W, and axial DWI with ADC reconstruction of the prostate were performed. Axial dynamic contrast- enhanced images were acquired of the prostate. Image quality: Acceptable. Motion artifa ct: Mild. Findings: Prostate measurement (3-plane): 4.7 x 2. 1 x 4.1 cm (transverse by AP by craniocaudal). Hemorrhage: None Benign prostatic hypertrophy: Moderate Lesion # 1 measures 1.7 cm and is locate d in the left peripheral zone at the level of the near apex on: Image # 24, series 550. Location: 2-4 o'clock Extra-prostatic disease or neurovascula r bundle invasion: not found Lesion overall PI-RADS Category: 5. Patchy bilateral T2 peripheral zone hypo intensities, likely related to prostatitis. Lymphadenopathy: not found No clear involvement of the bladder neck , distal sphincter, or rectum. No seminal vesicle invasion. Bone lesions: not found Other: Sigmoid diverticulosis.. IMPRESSION: Interval increase in size of left apical peripheral zone lesion with signal characteristics of clinically significant prostate carcinoma. OVERALL PI-RADS category: 5. I personally reviewed these image(s) sharlene ng with the resident's/fellow's interpretations, certify that if a procedure was performed I was physically present, and agree with the final report. Anali SCALES IMG MRI ORDERABLES after 02/17/2022 Insurance Payer Benefit Plan / Subscriber ID Effective Dates Phone Addre ss Type Group [employer]ETNA MEDICARE AETNA MEDICARE [id number] 2021-Presen [address] [place] [address] [place], [place] (Work) [phone] Jesus Szymanski Personal/Famil Self 1955 [address] (Home) [place] [address] Advance Directives Code Status Date Activated Date Inactivated Comments Full Code 12/15/2022 12:27 PM 12/16/2022 5:50 PM Care Teams Photo Intern Relationship Specialty Start Date End Date Luis E Woody MD PCP - General Urology 05/09/21 [facility] [place] [address] Tim Au MD Consulting Physician Radiation Oncology 10/03/[address] [place] [address] [id number]
--- OUTSIDE RECORDS SUMMARY | 2023-02-17 05:41 | XMS REPORT | Continuity of Care Document ---
:1955 Author Organization [facility] t Address [address] [place] [address] Care Team Providers Name Role Phone CHARLOTTE AMEZQUITA JR Primary Care Physician Unavailable SYSTEM, PROVIDER NOT IN Attending Clinician Unavailable Blake Sanchez Attending Clinician Unavailable ELIZABETH MITCHELL Attending Clinician Unavailable Elizabeth Mitchell MD Attending Clinician RAJESH KEENE Attending Clinician Unavailable Rajesh Velasquez Attending Clinician Carrillo JANSEN, Remington Attending Clinician REMINGTON MARIN Attending Clinician Unavailable Sowmya Fajardo RN Attending Clinician Unavailable Jade Faye MD Attending Clinician Keturah Segovia MD Attending Clinician Jose G Nina MD Attending Clinician [phone] JOSE G NINA Attending Clinician Unavailable Angela Hood MA Attending Clinician Unavailable MOISE BAUER Attending Clinician Unavailable Moise Bauer MD Attending Clinician Jessica Culver Attending Clinician JENNY AU Attending Clinician Unavailable Jenny Au MD Attending Clinician Jatinder Woody MD Attending Clinician JATINDER WOODY Attending Clinician Unavailable JESSICA HIDALGO Attending Clinician Unavailable CAROLANN POST Attending Clinician Unavailable MICHELLE DELGADILLO Attending Clinician Unavailable ELIZABETH MITCHELL Admitting Clinician Unavailable Payers Payer Name Policy Type Policy Number Effective Date Expiration Date Román ZHONG MEDICARE PPO [id number] 2021 00:00:00 [employer]ET[employer] O [id number] 2000 00:00:00 [employer]ET[employer] O POS QPOS [id number] 2018 00:00:00 Problems Condition Condition Condition Status Onset Resolution Last Treating Co mments Source Name Details Category Date Date Treatment Clinician Date 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 Center on on primarily due to work stress, generally resolvedL ast Assessmen t & Plan: Formattin g of this note might be different from the original. Does not take medicatio n , continue to monitor and follow-up with primary care provider Hypertensi Hypertensi Disease Active Overview : Univers on on 08-24 Formattin ity of 00:00: g of this note might be Anderso different n from the Cancer original. Center primarily due to work stress, generally resolved Bradycardi Bradycardi Disease Active U nivers a a 4-16 ity of 00:00: MD [facility] Irregular Irregular Disease Active Overview: Univers heart beat heart beat 11-22 Formattin ity of 00:00: g of this note might be Anderso different n from the Cancer original. Center bradycard ia with sinus pauseLast Assessmen t & Plan: Formattin g of this note might be different from the original. Takes no medicatio ns. Has a cardiolog ist. Acute Acute Disease Active Univers postoperat postoperat it y of amalia pain amalia pain [facility] Allergies, Adverse Reactions, Alerts This patient has no known allergies or adverse reactions. Family History Family Member Diagnosis Comments Start Date Stop Date Source Natural father Prostate cancer [facility] r [place] Natural mother Leukemia [facility] Paternal uncle Prostate cancer [facility] rsity of [facility] Social History Social Habit Start Date Stop Date Quantity Comments Source Gender identity [facility] Sexual orientation [facility] Exposure to 2023-01-12 2023-01-22 Not sure [facility]-CoV-2 (event) 00:00:00 09:47:00 [facility] Alcohol intake 2022-12-17 2022-12-17 Current drinker [facility] rsity of 00:00:00 00:00:00 of alcohol [place] Amando son (finding) [facility] Tobacco use and 2021-05-31 2021-05-31 Smokeless Universit y of exposure 00:00:00 00:00:00 tobacco non-user [facility] Sex Assigned At [address] [facility] 00:00:00 [facility]00 [facility] Smoking Status Start Date Stop Date Source Tobacco smoking consumption [facility] unknown Never smoked tobacco [facility] Medications Ordered Filled Start Stop Current Ordering Indication Dosage Frequency Signature Comments Components Source Medication Medication Date Date Medication? Clinician (SIG) Name Name multivitami Yes Take by Uni vers n tab 01-22 mouth. ity of tablet 10:07: [place] 50 [facility] ibuprofen Yes Take by Unive rs (ADVIL,MOTR 01-22 mouth. ity of [place]) 200 mg 10:07: [place] tablet 50 MD [facility] pseudoephed Yes Take by Uni vers rine 01-22 mouth ity of (SUDAFED) 10:07: every 4 [place] 60 mg 50 (four) tablet hours as Andishaan needed for n congestion Cancer . [place] fexofenadin Yes Take by Uni vers e (GILBERTO) 01-22 mouth. ity of 180 mg 10:07: [place] tablet 50 MD [facility] sildenafil Yes Erectile Take Uni vers (Revatio) 01-22 dysfunction Sildenafil ity of 20 mg 00:00: following 20mg PO [place] tablet 00 radical daily, prostatecto plus can Shahzad rso my add upto n 4pills Cancer (80mg) PO Center every 72 hours apart prn. sulfamethox Yes TAKE 1 Univ ers azole-trime 5-24 TABLET BY ity of thoprim 00:00: MOUTH [place] (BACTRIM 00 TWICE A MD VERMA) 800 DAY FOR 10 Min o mg-160 mg DAYS n per tablet Cancer Center methocarbam 2022- No Adenocarcin 750mg Take 1 Univers ol 12-16 earline of tablet ity of (Robaxin-75 00:00: 00:00 prostate (750 mg) [place] 0) 750 mg 00 :00 by mouth tablet every 8 Anderso (eight) n hours as Cancer needed for Center muscle spasms. traMADol 2022- No Adenocarcin 50mg Take 1 Univers (Ultram) 50 12-16 earline of tablet (50 ity of mg tablet 00:00: 00:00 prostate mg) by Hellen exas 00 :00 mouth MD every 6 Anderso (six) n hours as Cancer needed for Center severe pain. senna-docus 2022- No Adenocarcin 1{tbl} Take 1 Univers ate (Senna 12-16 earline of tablet by hi david of Plus) 8.6 00:00: 00:00 prostate mouth 2 [place] mg-50 mg 00 :00 (two) MD tablet times a Anderso day as n needed for Cancer constipati Center on. hyoscyamine No Adenocarcin .125mg Dissolve 1 Univers sulfate 12-16 earline of tablet ity of (ANASPAZ) 00:00: 00:00 prostate (0.125 mg) [place] 0.125 mg 00 :00 on the MD disintegrat tongue Min o ing tablet every 4 n (four) Cancer hours as Center needed for cramping. Saccharomyc 2022- No 250mg Take 1 Un luiz es 2-16 16 capsule ity of boulardii 09:02: 00:00 (250 mg) Betito as (FLORASTOR) 06 :00 by mouth 250 mg twice Anderso capsule daily. n Cancer Center Lacto Yes Univers 51-B.animal 08-24 ity of ,bifid-inul 00:00: [place] in (Fortify 00 MD Duarte) Anderso 50 billion n cell-50 mg Cancer cpDR Center Vital Signs Vital Name Observation Time Observation Value Comments Source Systolic blood 2023-01-22 14:58:28 138 mm[Hg] Univer sity of pressure [facility] Diastolic blood 2023-01-22 14:58:28 80 mm[Hg] Unive rsity of pressure [place] [facility] Heart rate 2023-01-22 14:58:28 65 /min [facility] [place] [facility] Body temperature 2023-01-22 14:58:28 37.22 April [facility] Respiratory rate 2023-01-22 14:58:28 16 /min [facility] Oxygen saturation in 2023-01-22 14:58:28 97 /min [facility] Arterial blood by Holly bonilla Pulse oximetry [facility] Center Body height 2023-01-22 14:51:00 186 cm Universi ty [facility] Body weight 2023-01-22 14:51:00 91.2 kg Universi ty [facility] BMI 2023-01-22 14:51:00 26.36 kg/m2 Universi ty [facility] MD [facility] Procedures Procedure Date / Time Performing Clinician Source Performed PROSTATE SPECIFIC ANTIGEN 2023-01-27 15:39:00 [facility] URINALYSI W/REFLEX CULTURE 2023-01-22 13:59:00 Kandathil[facility]esh [facility] SODIUM LEVEL 2022-12-16 08:40:00 [facility] POTASSIUM LEVEL 2022-12-16 08:40:00 [facility] CHLORIDE LEVEL 2022-12-16 08:40:00 [facility] CARBON DIOXIDE LEVEL 2022-12-16 08:40:00 Farida Ramires [facility] BLOOD UREA NITROGEN 2022-12-16 08:40:00 Farida Ramires [facility] SERUM CREATININE 2022-12-16 08:40:00 [facility] GLUCOSE, RANDOM 2022-12-16 08:40:00 [facility] HEMOGLOBIN 2022-12-16 08:40:00 [facility] HEMATOCRIT 2022-12-16 08:40:00 [facility] SERUM CREATININE 2022-12-16 08:40:00 [facility] .GLOMERULAR FILTRATION 2022-12-16 08:40:00 Farida Ramires [facility] ANION GAP 2022-12-16 08:40:[address] [facility] [place] [place] HEMOGLOBIN 2022-12-15 15:50:[address] [facility] [place] HEMATOCRIT 2022-12-15 15:50:[address] [facility] [place] PATHOLOGY SURGICAL 2022-12-15 14:45:00 Elizabeth Mitchell [facility] INTERPRETATION [facility] PERIPHERAL BLOCK 2022-12-15 12:10:00 Jose G Nina [facility] Yina [facility] [place] ROBOTIC ASSISTED 2022-12-15 11:28:00 Elizabeth Mitchell [facility] er Center TYPE AND SCREEN 2022-12-15 10:44:00 Elizabeth Mitchell [facility] [place] ABORH 2022-12-15 10:44:00 Elizabeth Mitchell [facility] ANTIBODY SCREEN 2022-12-15 10:44:00 Elizabeth Mitchell D[facility] CLOT EXPIRATION DATE 2022-12-15 10:44:00 Elizabeth Mitchell [facility] TMP INTERPRETATION 2022-12-15 10:44:00 Elizabeth Mitchell [facility] ANTIBODY SCREEN NEGATIVE [facility] INTRAOPERATIVE US 2022-12-15 10:28:09 Jose G Nina [facility] Yina [facility] EKG, 12-LEAD (SCHEDULED) 2022-12-10 00:00:00 Moise Bauer [facility] URINALYSI W/REFLEX CULTURE 2022-12-09 15:23:00 Rajesh Keene [facility] MANUAL DIFFERENTIAL 2022-12-09 15:12:00 Rajesh Keene [facility] GLUCOSE LEVEL 2022-12-09 15:12:00 Rajesh Keene [facility] BLOOD UREA NITROGEN 2022-12-09 15:12:00 Rajesh Keene [facility] ELECTROLYTE PANEL 2022-12-09 15:12:00 Jassi [facility] SERUM CREATININE 2022-12-09 15:12:00 Jassi [facility] .GLOMERULAR FILTRATION 2022-12-09 15:12:00 Rajesh Keene [facility] RATE [facility] CALCIUM LEVEL TOTAL 2022-12-09 15:12:00 Rajesh Keene [facility] ALBUMIN LEVEL 2022-12-09 15:12:00 Jassi [facility] ALKALINE PHOSPHATASE 2022-12-09 15:12:00 Rajesh Keene [facility] ALANINE AMINOTRANSFERASE 2022-12-09 15:12:00 Rajesh Keene [facility] ASPARTATE AMINOTRANSFERASE 2022-12-09 15:12:00 Rajesh [facility] [place] TOTAL PROTEIN 2022-12-09 15:12:00 Rajesh Keene [facility] [place] FRACTIONATED BILIRUBIN 2022-12-09 15:12:00 Rajesh Keene [facility] ABORH 2022-12-09 15:12:00 Rajesh Keene [facility] er Center ANTIBODY SCREEN 2022-12-09 15:12:00 Rajesh Keene [facility] [place] CLOT EXPIRATION DATE 2022-12-09 15:12:00 Rajesh Keene [facility] TMP INTERPRETATION 2022-12-09 15:12:00 Rajesh Keene [facility] ANTIBODY SCREEN NEGATIVE MD Pike [facility] COMPLETE BLOOD COUNT W/ 2022-12-09 15:12:00 Rajesh Keene [facility] DIFFERENTIAL [facility] HEMOGLOBIN A1C 2022-12-09 15:12:00 Jassi Rajesh [facility] COMPREHENSIVE METABOLIC 2022-12-09 15:12:00 Rajesh Keene [facility] PANEL [facility] PROSTATE SPECIFIC ANTIGEN 2022-12-09 15:12:00 Rajesh Keene [facility] [place] [facility] TYPE AND SCREEN 2022-12-09 15:12:00 Rajesh Keene [facility] [place] Results CBC 2022-12-09 15:12:00 Jassi [facility] CONFIRM ABORH TYPE 2022-12-09 15:11:00 Rajesh Keene [facility] MRI PELVIS W WO CONTRAST 2022-10-02 19:26:16 Shed, Jessica E [facility] [place] PROSTATE [facility] PROSTATE SPECIFIC ANTIGEN 2022-10-02 16:07:00 Shed, Jessica E [facility] PROSTATE SPECIFIC ANTIGEN 2022-04-04 16:28:00 SeanJessica Gina [facility] Plan of Care Planned Activity Planned Date Details Comments Source Future Scheduled 2023-04-[address] [facility] Test 00:00:00 (Season Ended) [code = [facility] Influenza Vaccine (Season Ended)] Future Scheduled 2023-02-09 [facility] 06:24:02 malignant neoplasm of colon (procedure) [code = 574239227] Future Scheduled 2023-02-09 [facility] 06:24:02 malignant neoplasm of colon (procedure) [code = 547991401] Future Scheduled 2023-02-09 SHINGLES [facility]ACCINES ([facility] 06:24:02 of 2) [code = SHINGLES VACCINES (1 of 2)] Future Scheduled 2023-02-09 COVID-19 VACCINE ([facility] - [facility] 06:24:02 Moderna series) [code = COVID-19 VACCINE (3 - Moderna series)] Future Scheduled 2023-02-09 65[facility] 06:24:02 VACCINE (1 - PCV) [code = 65+ PNEUMOCOCCAL VACCINE (1 - PCV)] Future Scheduled 2023-02-09 INFLUENZA [facility]ACCINE [facility] 06:24:02 [code = INFLUENZA VACCINE] Future Scheduled 2023-02-09 [facility] 06:24:02 malignant neoplasm of colon (procedure) [code = 886934912] Future Scheduled 2023-02-09 [facility] 06:24:02 malignant neoplasm of colon (procedure) [code = 281381707] Future Scheduled 2023-02-09 [facility] 06:24:02 malignant neoplasm of colon (procedure) [code = 370895950] Future Scheduled 2023-02-09 [facility] 06:24:02 (procedure) [code = 743457670] Future Scheduled 2023-02-06 COVID-19 Vaccination [facility] Test 12:21:22 (3 - Moderna series) MD [facility] [code = COVID-19 Center Vaccination (3 - Moderna series)] Future Scheduled 2022-08-[address] [facility] Test 00:00:00 (12+) [code = Medical Center DEPRESSION SCREENING (12+)] Future Scheduled 2022-08-24 FALLS RISK SCREENING [facility] Test 00:00:00 [code = FALLS RISK Medical C enter SCREENING] Future Scheduled 2021-02-17 PNEUMOCOCCAL 65+ Y[facility] Test 00:00:00 (1 - PCV) [code = Medical Ce nter PNEUMOCOCCAL 65+ YRS (1 - PCV)] Future Scheduled 2020-12-22 COVID-19 VACCINE (3 - [facility] Test 00:00[facility]00 Booster for Moderna Medical Center series) [code = COVID-19 VACCINE (3 - Booster for Moderna series)] Future Scheduled 2006-02-17 SHINGLES VACCINES ([address] [facility] Test 00:00:00 of 2) [code = SHINGLES Medic al Center VACCINES (1 of 2)] Future Scheduled 1975-02-17 DTAP/TDAP/TD VACCINES [facility] Test 00:00:00 (1 - Tdap) [code = Medical C enter DTAP/TDAP/TD VACCINES (1 - Tdap)] Future Scheduled 1974-02-17 HEPATITIS C [facility]CREENING [facility] Test 00:00:00 [code = HEPATITIS C Medical Center SCREENING] Future Scheduled [address] [facility] Test 00:00:00 Counseling and Medical Cente r Screening (12+) [code = Tobacco Cessation Counseling and Screening (12+)] Future Scheduled [address] [facility] Test 00:00:00 (combo) [code = CT Medical C enter Colonography (combo)] Future Scheduled [address] [facility] Test 00:00:00 malignant neoplasm of Medica l Center colon (procedure) [code = 116708697] Future Scheduled [address] [facility] Test 00:00:00 malignant neoplasm of Medica l Center colon (procedure) [code = 710011701] Future Scheduled [address] [facility] Test 00:00:00 malignant neoplasm of Medica l Center colon (procedure) [code = 802422369] Future Scheduled [address] [facility] Test 00:00:00 malignant neoplasm of Medica Center colon (procedure) [code = 388956904] Future Scheduled 1955 Sigmoidoscopy [code = [facility] Test 00:00:00 Sigmoidoscopy] Medical Cente r Encounters Start End Encounter Admission Attending Care Care Encounter Source Date/Time Date/Time Type Type Clinicians Facility Department ID 2022-12-17 Outpatient SYSTEM, PABLO SHAH [id number] 14:17:53 PROVIDER Min o lyla 2022-10-27 [facility] [id number] Common 10:28:03 [facility] [id number] [facility] 2022-08-15 Outpatient Sanchez, [facility] [id number] Common 09:55:01 [facility] [address] [facility] 2021-09-11 Outpatient SYSTEM, PABLO SHAH [id number] 09:37:20 PROVIDER Min arita 2021-08-06 Outpatient SYSTEM, PABLO SHAH [id number] 09:47:39 PROVIDER Minfantasma arita 2021-05-29 Outpatient SYSTEM, PABLO SHAH [id number] 14:38:13 PROVIDER Minfantasma arita 2023-01-27 2023-01-27 Outpatient ELIZABETH ESTRELLA [facility] PABLO [id number] 10:25:05 23:59:00 Min arita 2023-01-27 2023-01-27 [facility] Elizabeth Mitchell 1.2.840.1 [id number] Samuel 10:25:05 23:59:00 Encounter W. [id number] it y of 3.412.2.7 [place] .3.230205 .8 [facility] 2023-01-22 2023-01-22 Outpatient DARWINMARIBELJagdeep [facility] PABLO [id number] 08:30:00 23:59:00 RAJESH arita 2023-01-22 2023-01-22 [facility] 1.2.840.1 [id number] [facility] 08:30:00 23:59:00 Encounter Rajesh 10725.1.1 it y of 3.412.2.7 [place] .3.008432 .8 [facility] 2023-01-22 2023-01-22 Remington Kerr 1.2.840.1 [id number] [facility] 10:00:00 13:48:11 15077.1.1 ity of 3.412.2.7 [place] .3.499047 MD [facility] 2023-01-22 2023-01-22 Outpatient REMINGTON DESAI [facility] [id number] 09:48:18 13:48:11 [facility] 2023-01-22 2023-01-22 Travel 1.2.840.1 [id number] [facility] 00:00:00 00:00:00 06864.1.1 350.1.13.41 ity of 3.412.2.7 2.[place].7.3.698 [place] .3.002203 084.8 MD Glynn [facility] 2023-01-21 2023-01-21 Orders Jassi, 1.2.840.1 [id number] Univers 00:00:00 00:00:00 Only Rajesh 36897.1.1 ity of 3.412.2.7 [place] .3.822824 MD [facility] 2022-12-17 2022-12-17 Nurse Scotty, 1.2.840.1 [id number] Univers 00:00:00 00:00:00 Triage Amsha 34662.1.1 ity of 3.412.2.7 [place] .3.090610 MD [facility]nn [facility] 2022-12-15 2022-12-16 Outpatient ELIZABETH ESTRELLA [facility] Urology [id number] 05:11:00 15:49:00 Min [facility] 2022-12-15 2022-12-16 Elizabeth Kirk 1.2.840.1 [id number] [facility] 05:11:00 15:49:00 Encounter W. 38419.1.1 it y of 3.412.2.7 [place] .3.573169 MD [facility]nn [facility] 2022-12-15 2022-12-15 Surgery Elizabeth Mitchell 1.2.840.1 [id number] Univers 07:00:00 11:05:00 W. 35120.1.1 ity of 3.412.2.7 [place] .3.769584 MD [facility]nn [facility] 2022-12-15 2022-12-15 Anesthesia Jade Faye 1.2.840.1 [id number] Univers 06:48:00 10:22:00 Event Keturah Segovia 64233.1.1 ity of 3.412.2.7 [place] .3.556907 MD [facility] 2022-12-15 2022-12-15 Ancillary Casper 1.2.840.1 [id number] Univers 05:30:00 05:40:00 Procedure Jose G 66357.1.1 it y of Yina 3.412.2.7 [place] .3.310236 MD [facility]nn [facility] 2022-12-15 2022-12-15 Outpatient RUSH NINA MDA MDA [id number] 05:28:09 05:28:09 JOSE G arita 2022-12-15 2022-12-15 Travel 1.2.840.1 [id number] [id number] Univers 00:00:00 00:00:00 28950.1.1 350.1.13.41 ity of 3.412.2.7 2.2.7.3.698 [place] .3.793026 084.8 MD Glynn [facility] 2022-12-12 2022-12-12 Anesthesia Erwin, 1.2.840.1 [id number] Univers 09:16:49 09:16:49 Event Angela E 66628.1.1 it y of 3.412.2.7 [place] .3.806679 MD [facility]nn [facility] 2022-12-10 2022-12-10 Outpatient RUSH BAUER MDA MDA [id number] 10:30:00 23:59:00 MOISE arita 2022-12-10 2022-12-10 [facility], 1.2.840.1 [id number] Univers 10:30:00 23:59:00 Encounter Moise Kline 12823.1.1 i ty of 3.412.2.7 [place] .3.255539 MD Ochoa8 [facility] 2022-12-10 2022-12-10 Travel 1.2.840.1 1.2.179.066 [id number] Univers 00:00:00 00:00:00 77147.1.1 350.1.13.41 ity of 3.412.2.7 2.2.7.3.698 [place] .3.433644 084.8 MD Ochoa8 [facility] 2022-12-09 2022-12-09 [facility] MDA [id number] [place] 09:45:00 23:59:00 RAJESH arita 2022-12-09 2022-12-09 [facility], 1.2.840.1 [id number] Univers 09:45:00 23:59:00 Encounter Rajesh 93814.1.1 it y of 3.412.2.7 [place] .3.027626 MD [facility] 2022-12-09 2022-12-[address] [facility], 1.2.840.1 [id number] Univers 13:00:00 15:15:27 Appointmen Rajesh 82897.1.1 i ty of ts 3.412.2.7 [place] .3.492212 MD [facility] 2022-12-09 2022-12-09 [facility] MDA [id number] 12:47:02 15:15:27 RAJESH arita 2022-12-09 2022-12-09 Office Elizabeth Mitchell 1.2.840.1 [id number] Univers 11:00:00 12:43:25 Visit WDon 07230.1.1 ity of 3.412.2.7 [place] .3.129769 MD Glynn [facility] 2022-12-09 2022-12-09 Outpatient ELIZABETH ESTRELLA [facility] MDA [id number] 10:55:20 12:43:25 Min arita 2022-12-09 2022-12-09 Travel 1.2.840.1 [id number] [id number] Univers 00:00:00 00:00:00 73600.1.1 350.1.13.41 ity of 3.412.2.7 2.[place].7.3.698 [place] .3.862803 084.8 MD Ochoa8 [facility] 2022-10-28 2022-10-28 Prep for Kandathil, 1.2.840.1 [id number] Univers 00:00:00 00:00:00 Surgery Rajesh 06636.1.1 ity of 3.412.2.7 [place] .3.063352 MD [facility]nn [facility] 2022-10-28 2022-10-28 Orders Jassi, 1.2.840.1 [id number] Univers 00:00:00 00:00:00 Only Rajesh 05481.1.1 ity of 3.412.2.7 [place] .3.283757 MD [facility]nn [facility] 2022-10-27 2022-10-27 Telemedici Elizabeth Mitchell 1.2.840.1 [id number] Univers 16:00:00 16:28:35 ne W. 00812.1.1 ity of 3.412.2.7 [place] .3.203432 MD [facility]nn [facility] 2022-10-27 2022-10-27 Outpatient ELIZABETH ESTRELLA [facility] MDA [id number] 15:55:53 16:28:35 Min [facility] 2022-10-15 2022-10-15 Telephone Shed, 1.2.840.1 [id number] Univers 00:00:00 00:00:00 Jessica Fuentes 47810.1.1 ity of 3.412.2.7 [place] .3.560376 MD [facility] 2022-10-13 2022-10-13 Telephone Shed, 1.2.840.1 [id number] Univers 00:00:00 00:00:00 Jessica Fuentes 03346.1.1 ity of 3.412.2.7 [place] .3.170477 MD [facility]nn [facility] 2022-10-09 2022-10-09 Outpatient RUSH AU MDA [facility] [id number] 08:29:42 23:59:00 JENNY Shahzad [facility] 2022-10-09 2022-10-09 Hospital Au, 1.2.840.1 [id number] Univers 08:29:42 23:59:00 Encounter Jenny 97281.1.1 ity of 3.412.2.7 [place] .3.599775 MD Glynn [facility] 2022-10-09 2022-10-09 Travel 1.2.840.1 1.2.812.303 [id number] Univers 00:00:00 00:00:00 81010.1.1 350.1.13.41 ity of 3.412.2.[place].3.698 [place] .3.764359 084.8 MD [facility]nn [facility] 2022-10-03 2022-10-03 Follow-Up Adibi, 1.2.840.1 [id number] Univers 08:30:00 09:39:15 Jatinder 32277.1.1 ity of 3.412.2.7 [place] .3.280069 MD [facility]nn [facility] 2022-10-03 2022-10-03 Outpatient RUSH WOODY MDA MDA [id number] 08:21:03 09:39:15 JATINDER sears 2022-10-03 2022-10-03 Travel 1.2.840.1 1.2.363.772 [id number] Univers 00:00:00 00:00:00 48986.1.1 350.1.13.41 ity of 3.412.2.[place].698 [place]3.960675 084.8 .8 [facility] 2022-10-02 2022-10-02 Outpatient EL SHED, MDA MDA [id number] MD 09:52:52 23:59:00 JESSICA Minfantasma arita 2022-10-02 2022-10-02 Hospital Shed, 1.2.840.1 [id number] Univers 09:52:52 23:59:00 Encounter Jessica Fuentes 23601.1.1 i ty of 3.412.2.7 [place] .3.516571 MD Ochoa8 [facility] 2022-10-02 2022-10-02 [facility] Shed, 1.2.840.1 [id number] Univers 11:15:00 14:00:00 Procedure Jessica Fuentes 90528.1.1 i ty of 3.412.2.7 [place] .3.444449 MD Ochoa8 [facility] 2022-10-02 2022-10-02 Outpatient SHED, MDA MDA [id number] MD 10:48:47 10:48:47 JESSICA arita 2022-10-02 2022-10-02 Travel 1.2.840.1 1.2.569.204 [id number] Univers 00:00:00 00:00:00 63240.1.1 350.1.13.41 ity of 3.412.2.[place]3.698 [place]3.9476[place] 084.8 MD [facility]22-[facility]-04 2022-04-04 Hospital Shed, 1.2.840.1 [id number] Univers 11:25:05 23:59:00 Encounter Jessica Fuentes 75769.1.1 i ty of 3.412.2.7 [place] .3.841186 MD [facility]nn [facility] 2022-04-04 2022-04-04 Outpatient SHED, MDA MDA [id number] MD 11:25:05 23:59:00 JESSICA arita 2022-04-04 2022-04-04 Office Adibi, 1.2.840.1 [id number] Univers 11:00:00 11:18:40 Visit Jatinder 17802.1.1 ity of 3.412.2.7 [place] .3.265281 MD Ochoa8 [facility] 2022-04-04 2022-04-04 Outpatient EL ADIBI, MDA MDA [id number] 10:30:55 11:18:40 JATINDER arita 2022-04-04 2022-04-04 Orders Shed, 1.2.840.1 [id number] Univers 00:00:00 00:00:00 Only Jessica Fuentes 02000.1.1 ity of 3.412.2.7 [place] .3.107469 MD Ochoa8 [facility] 2022-04-04 2022-04-04 Travel 1.2.840.1 1.2.085.758 [id number] Univers 00:00:00 00:00:00 20056.1.1 350.1.13.41 ity of 3.412.2.[place]3.698 [place] .3.949177 084.8 MD Ochoa8 [facility] 2022-02-25 2022-02-25 Orders Shed, 1.2.840.1 [id number] Univers 00:00:00 00:00:00 Only Jessica Fuentes 99563.1.1 ity of 3.412.2.7 [place] .3.648875 MD Ochoa8 [facility] 2021-07-05 2021-07-05 Outpatient EL SHED, MDA MDA [id number] 12:59:25 15:04:43 JESSICA arita 2021-06-27 2021-06-27 Outpatient EL SHED, MDA MDA [id number] 15:51:25 15:51:25 JESSICA arita 2021-06-21 2021-06-21 Outpatient EL MDA MDA [id number] 12:15:28 12:15:28 Min arita 2021-05-31 2021-05-31 Outpatient EL ADIBI, MDA MDA [id number] 07:26:56 09:26:16 MEROYA Min arita 2021-05-31 2021-05-31 Outpatient EL [facility] [id number] 07:31:20 07:31:27 Min arita 2021-04-08 2021-04-08 Outpatient [facility] [id number] [place] 00:00:00 00:00:00 CAROLANN [address] 2020-12-14 2020-12-14 Outpatient ELIE [facility] [id number] [facility] 00:00:00 00:00:00 MICHELLE Results Test Description Test Time Test Comments Results Result Comments Source PSA 2023-01-27 17:15:49 Test Item Value Reference Range Interpretation Comme nts PSA (test code = 2857-1) 0.0-4.0 Res ults greater than 4519 ng/mL may not be reli able due to matrix effect with ext ended dilution as it exceeds the cardiology rn's recommended stoll it. Caution should be exercised wh en interpreting such values and done in conjunction wit h clinical context.Testing Performed at [facility], [address] [place] [address], [address], [place] [address] PSA Indication (test code = Diagnostic 73050-3) [facility] 2023-01-22 14:35:54 Test Item Value Reference Range Interpretation Comments UA Color (test code = Yellow Straw-Yellow 22896-6) UA Appear (test code = Clear Clear 59221-1) UA Glucose (test code NEG NEG mg/dL = 5792-7) UA Bili (test code = NEG NEG 5770-3) UA Ketones (test code NEG NEG mg/dL = 5797-6) UA Spec Grav (test 1.035 1.003-1.035 code = 5810-7) UA Blood (test code = NEG NEG 5794-3) UA pH (test code = 6.0 5.0-9.0 5803-2) UA Protein (test code 20 mg/dL NEG A = 5804-0) UA Urobilinogen (test NEG NEG code = 5818-0) UA Nitrite (test code NEG NEG = 5802-4) UA Leuk Est (test code NEG NEG = 5799-2) UA WBC (test code = See_Comment Some rep orting 69089-9) parameters with in the Urinalysis test have changed due to the implementation of new instrumentation in the [facility] [place] greater sensiti vity of measurement. Urinalysis resu lts reported by the [facility] using existing instrumentation , as well as Urinaly sis testing perform ed manually or by backup methodology at the [facility] [place] [facility] remain relative ly unchanged. New reporting christy eters and units will not be reported for al l campuses. [Auto mated message] The sy stem which generated this result transmit errol reference range : 0 - 2 /HPF. The refer ence range was not u sed to interpret this result as normal/abnor mal. UA RBC (test code = See_Comment [Automa errol message] 81806-8) The system [employer] generated this result transmitted ref erence range: 0 - 2 /H PF. The reference range was not used to int erpret this result as normal/abnormal . UA Mucous (test code = NOT SEEN Not Seen-Trace 07732-2) /HPF UA Bacteria (test code NOT SEEN NOT SEEN /HPF = 22812-9) UA Squam Epi (test NOT SEEN None-Occasional code = 72372-6) /HPF Lab Interpretation Abnormal (test code = 28918-6) [facility]ation 2022-12-30 12:17:35 Test Item Value Reference Range Interpretation Comments Submitted Clinical o4hpuPIsHRGac2zgZTTcyAYeXwIg History (test code MzNcZnRuYmpcdWMxIHtccnRmMVxz = 27108) c9ZcU4DcBxPlVXysftNtTNCxPbaw knraCCXxMXS4amJcIGIuQPtpVKYa LKqkBl2qcAMwaRqcRvPkFJOcm4rh nwJKteecvJv5t4qnVULpMrC6uBDz WGksF2ifmmHkjNGfSZRtIEd0uV97 BOQhpB3huZZpUTphctEeAxY5YHjl BVNySyW1THTumWJfCZTtI2rlGOLz EUjwWZDbEVezbQYjJJF6oTysa7I3 tAVmfCMgfGiiXuYzAyDlOyAXo7Vo EYn2mYekL0KfZGJlUeS3mMCfWXJn RUafDNApOCBoyyB4hI42NDsqwjX3 nQZld7Zbo08xw754fZ5imFLsWUE5 FZSkPYEbyKTbSOPlHKW0SXYohKMe C3yfENJwQA6hazsmORuuAQrnUTWm bQN6GSDasKMaM4GuKEXcTKyiCGVx sry3AhUzEy3ipHYdkBpeRRkmc1wc o8aytISaZwv3VHDlNkIrDckzPOyz t6Wdo3ikBMTuzd2jYDS0uTYfgPdx c5P1yXGcKQIiuKVhsoDsIQDrWyN3 GBhzJT6adn55YQDlBVD4xo6poRDb eJqjrkTnyQLdFCxzR7WmVKFbo045 JSBlO9JkKCBat7V7wlEaHvOfZZLn pBV7zzY5ACMjJHj0cFJawrJ8bqUt cYAkV9trzX8bRNZtLU7dezdmd1es XUffHJzwLQQkgBM0elX7JKVulWCo Q1ZdpN9yCLUeBWtkTGDzxex2EkFy Kd5ydNGriXcmFRstUwcvNZcwZAAi bmNvbnRccGduZGVjXHBsYWluXHBs TUggEWQdSQHcNdKerIqzwAglqX6n XtGjZnCcSLjzHU7mZMEsR7srqOSq BOMwVRBjN9hcRvXwkU2mzFsyUMie atWlGZFwFE1gK4VhV6ylj53kOH0y LSZse5C8EAMqDAcKAoJaALFlFKkv XGYxXGZzMjJcbGFuZzEwMzNcaGlj lJwaDNsbDbXpRCYyAZxmG3ziJaXb LpJbHihgUTJ6zS== Diagnosis (test t8lnqKAxNUJjkMCqBBQpBkfjfjKg code = 34) BJRfmZMyW5CltqtrRVvzYX7iNA5x kWmrdDIqkJSeDXKdGbMky8qgi438 rMZcp9lrDFVJdewtcYa1yMwfI10q d2A5EqrhV6itRTQuTTrmFTKjAQvx oLOhOAy3RFEbbAGubzKiMcUoCMDr eCGlqFQ6ZCYvGU4osgzpXKhcHDca STSzzgK8RTFkqUYjC9SbRBYlVK7c sxdzZZO1YCfrECUfSZK7DtNrVBRz c7Ovxvt0OoIdrYPpADzxxXGobwpz qiEyUAScEMVAOnSGyz2rbEI3MECp oRSfGRFdfuWuf4DtmM7kfDW6GZUi I1olwhnejTOqORldZtVrVHbkkfws MIeyAyYhBQNPI6LIAZhSNHAIQD5B N3WLV7sHG43ARBMLCKJMB38WEZMF C1BKOQmiGGXgNXphYFtVAIBaW92D HKBJNQcwaBByIFLxirSjiRl8LkMo fPpxTiZrNIUfg4CsW7B4FLUkWZnb i7hdJJBzXUjjp5PfLJuYKREOWI0O CF1cdWA4LMsXQSZAL5cZxNI7MWJz tVE9GM17EHVmVFUeeUKiEWovH154 FFTUJ0LpK83JOacLOCOdDH5iGLvN DSGAX5TWOZJMEgrfHSGuZyeppCSy FJ3jEPgvQwUsh2LrgZ2egNX7DYBo S6xdccmwfc9coODad2IexRGjj0Cc zI0huEEmPRIsQ42emuYgTX0fEMTw A7o5GSHjPJClOUE5DKAkr1AjNUCt ZTJsgsOpTNlygx0paYVxb2JddTBk c9KdvK66JZHqOXtif4lsFHPkKPme w6OpHSzQZPNIKS1CKN4crIK4EOaR QZKIRLigPGb1LwpihYC4w5shcMCx y3l0SQvqXXT6vRhgjNOwkiwmrdAj GQOukiohmy92TJE8d7glyWGmXEvm RsgujIEvonH2CVgYEBOJSArXOePq GW0xABxBM2VNHJeLIqnjDGm4W1cz yYB3n3yqoMNko9g1TDbtBDA3iZLT GE7NEKQODFHZMLQcSX0eLWrZRL6Z AnfHQcSARdKFOYYJP0UZE24wr7kc dXWsBNbeHpofnCRzzlM0OVpSPIUD EAuGAoWwTH5wAIfFZ9TJWeU3XuR1 NHG8LtsfwXozFweqasWsnKTyGtCe hN2vyQxgaM7uIwIePHecSQRiuXWc wKJqsPwrYwhjvTN2FIveYqihcX5l bFMWZSBWCewESbodzmEcCA6WMEWB NhOXLY69ZpP5INR4S3synNelYguw ndIizIUrUsPaqH5HnaXvwA2izN24 FXVqdYdrziIpytRma5sbaoXvWRXw sAwgbGRlDtelAmdpqZS7CUdeKlsx mX9cpLFRHBKLWnwEDnlzqtPnYA5U DVTPYV8IhUU2LVC0jUL3L301FGFc TCCnrAIkCRlxJ251CMDeDYqpYTCl MjBccGFyXHBhclxwYXJcbGkwXGxp ggXcGZOpfMDtWOQaX29LAfYWEEEF Q37LPBVZPNRAG8RBR9vESTV7BPIw nRU0LG76UsKoMxF0GXF3Ci7qYiT6 CXC0sYH6JMHTYPPLJPnHZ1XrDNAQ FKFPRDWvYE8VGGsLTWFXLMYWP15D HJPUWGULX7SOA0dHOWhPXVZLUGLA D00BLMPHSQJEB5NEHNBRPELCMHyY HYRZDz1PGHMJXZXYHO2JIVlJOmBp IFdSaZ2qqmGAeVYxidZrj695ZhJ6 CBLjnQWdw9Rwh7D7XHTqLB0jsjar mpnxKFe9U7v2H4s1QLZMCsH5KMY9 QL6kLOqCW1DAA2tILCMoUVWRZZXO TUGbAV8FHIbFRS8KLUZkVGMVZQKQ TKVoNfMYSD4rLAhMSK0WMGMcDMNV UGKESOSnHA4OQHNSGT5XVAAFRLML T47RNHSREJJNE4BAC3zBSLEKHMAI DpRHYrHKVO8DDRFKHATQEI4FYxZ5 Comment (test code o7fgeNOgGZBzbYPsWWIfCkxfjxKn = 9835) UGFboKFsR6BlwgjyNLyoQJ7zAM0c rLwzeYWgmUYdIHTcZlCzl2uzq377 mNRek3imWBKFutgkdGz5iRhjS76o z3V4FkjyD82lwEFvXCY7RHFuYTBv dGSgQYLtAVO2OAZkvXGqD0tlNVTh PX2zijuhPCluHOumNERryZJ5WSUn rULbG9NbPBRzFLddZRIknfr5UbJe Jr0hzOQdyBveGTknVQXuUFVrMXgk YNMdJjHvPSfdAIOzu9P5HAUjLGcs CL1xOYKxjmOfjS5zAGY4taCie2Uo KB6dBNNoh1Q1LGBqZwAvVSUle1Il wsUvfx7lYQAqamA3eGByzGOcmMXy TWOzpJD9b19yLpuhOLVbdVMuLYOv BREsz58qhgIxfTX8zE7qahAhf4V0 osWwJ3zoOXQhqfCqX38pYVN8UZxr JNpaWHniBKugAXjeH5G4TBRzqX3i gLpoGAnzVqTuEL38XNSww0FxWFiq OaQwOW59SKChhDV3IWFoyAgvvFAq sXDiMODtunXtMXHwZJM3RIRgm2El rp2mDMVplmWxMKRgPQIsSZP7MQQn b7LclgeaxzLcGJOazVpteaTgGKym tcQxPJVtcTOibHWqc9PbQe1fyESt bAEnk2OmCNBrUK57POvuNX1rLZBz XRdlNBCcVIJsOZFqSIX7UTDrd2Jj UKAyR1Thu87yzNBohU2pgvGyp94j LK6qZNt6EKxsMVDhEIPogvCrtG3u gHsmOUUqxPVjzEChw0TnyLsfMZAg d2AvZLXhP8Cmu96yMFIqrWXbaeYv trCshSDfeuY5eTPvSHEhxGVowfXf Mi2oTDapsKBnwpT2yYQsHzDlDC2c WI6keEotTRwkShXcvE5vcUWmd0ft wBTzSOlxa0FzVmTxCUPwrxLzaY1e eNVfpU3iFPFiVOkmVZAsiNTucMGx t1EoPx6pqPYnHEu5HU9eeyDgf5Mb aVc3TOtqHVNmBEDjLD2urSayXC59 HZ6oVFI9ksL8eHWfuTOyP2gpSA2o BWEpf5FzoFxopx1pzAYiFBMaupQK qFXbz6Qas44tRQE1bG6aTQArD0Ar QZwAxXBdd75hMSAot8TcBRfxJDNv RcQ5FZ4ugQDqkX3zRSBhYQEccyI8 zOKedwbnkZGpUJ10VRPptED5CYXg oLrlpfhjfDJseXA2XBYiySgilsml dVGjfQ4jpNQlb4ybaDDxLOhrPO7b RPKuC8e0IKArz3YfdjbufaWsJMYz cGhlcmFsIHpvbmUuIFRoaXMgdHVt e5FdLu7ylEParLHxe9YaEZTrVU07 TPikCD58AKLpPMztVVAiLPPtWHRc CGZ8JOBbu4MbLTMvV5Zeb29rnUJx gJ0rukWrn06tDH2lRXg2OMhjULWk EORujrKniV3lwXkpHTSusEGvgMWe a8MivFkgDIYft7EwRQWpG2Jsh86h IKDoGJKap0IkqPu1EPljOKRmCABv IKDgTyXIdPIhpDYgU6qdPR8kDRHg r9GmsDoifmMax9RodKsxdaW5mM2e aeHzw8S6vnRjguZpndGsLH8vJGU9 nN7sZizkCZDisGRzYABvzFnfdRJp t2XxYn8ipJVvvpObS67tNkvyXZMx aT4frQkkBMCna7D3QVRqNdzzEQLa uKXpTPCbBTd4mM0jTQmaMQHbpKOx SDYkM4Oht80iNYLbl92xcWccBRNv s4YchuI7LWIyVZY8PQ3rhdHdZtai YXJ9 Synoptic Checklist PROSTATE GLAND: Radical (test code = 9864) ProstatectomyPROSTATE GLAND: RADICAL PROSTATECTOMY - All Kxjjrbqln0hs Edition - Protocol posted: 07/03/2021 SPECIMEN Procedure: Radical prostatectomy TUMOR Histologic Type: [...] 17 mm Additional Dimension of Dominant Nodule (Millimeters): 10 mm Location of Dominant Nodule: left anterior, left anterolateral, left lateral, left posterolateral and left posterior peripheral zone Extraprostatic Extension (EPE): Not identified Urinary Bladder Neck Invasion: Not identified Seminal Vesicle Invasion: Not identified Lymphovascular Invasion: Not Identified MARGINS Margin 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 TNM Descriptors: m (multiple) Primary Tumor (pT): pT2 pN Category: pN not assigned (no nodes submitted or found) Gross Description l5hniYUuLYOdtSDHQYBkEHLqOK4m (test code = pZlspJh5nMcxUWLcuiI3uVQxPOhn [id number]) s5ngNUF0n9dawuOWGdzpXPVgFN2m MWpdULFmTP6hBoXaYONjKqFuFJYg oBSmahPkRmYxCPFxpTOtuVP2JEJj ET6tsdkxVVaiJLasGDBrdbR1PXTh cSMaL4LoIYKfZE9ynfemPFZ9MRHK ByrrVn0pxVFpoVhaXrQbOwTkIIHa MGOuPYAyfKwvHESlYUr1hQ0OMhgw P60qk4K0Tvi1OVFkQAZcU6PyMK5d TGLpqTCoM90GOyalLEI1PDNPCquk TgwqnFrik1VocBBoXNHnCHzetVXr NTEwMDAgXFxkYiBPVlIgIiAxMjU4 FScqRrW2HSd5JBQBFKWmWuZhYiK9 BRX1DZr0DMJeLJ3wSLeavWSsIXmb HbqjONfbD484CGgjXOBsG8GnV8Xx XFxzZyBcXGlkIDUxMDAyIFxcZGIg V9FQGXPfHTF7CXr3WLEnBOt2KZez H2OROUZeVNO2EmP9TIg7GrZ6ZYc5 HMFYAz7fAHWfCHi2WzY1RkM2AGx6 MSBcXHQgMiBcXHNzIDMgXFxmbCBc TP8icFxpHSOjNX7XHQGlCJqoUAWy ZnMyMCBBOlxwYXIgDQpccGFyZCAN DqkodQJrarqsKJLkIiWbbUcinJ1s lZEnE9dtDxDaPizmyJfvRiGkzDJj YzEgDQpcbHRycGFyXGxpbjBccmlu EDNVZpfiLCGcUVxxhsJbUSOvz4Z4 OHEqUSqqSU8aAWHyKREuFN8lvjEw STPit6etuAOoHTQxcv9etHZ3GUFb yZQbEZTmkqUni3EluS7axFK2CMBp L4bofkGzNIYsikDbRBpmCbLcGisa MCAgXHBhciANClxwYXIgDQpcZmk3 MjAgDQpBIHNwZWNpbWVuIGNvbnNp o1Zgjhlgk7IqRNIvdg2byIF9EKtu CGX8IHLgTWHeuvuvqVEuMK2hSXib HnZnj6OzxT0cpRE5QPGnU2momwFh geFmTNI8HVAlAKAuc0LdsGSbcIQy j6ZjlxxcrMFlTM6iPRioDkWvvyZh YSBkZWZlcmVudGlhLlxwYXIgDQpc CjweMB1YDJJhRjYAyLMoxLKxn6Hh cDRfF4ynsyGeYQBkKuD1BNClEKV5 IDMuNiBjbSwgMTYuNSBncmFtcywg kL3qaX1rqTbvmPxyibilmSIrZNEl JKX7o7MatBZahJJbAF3tQDFkx9Kz N2E4XZNtZEopa8umZCPwFXeij6Tj JJlHDGNXLG3FXD0orZW0WQxQYPXZ I1iXhYI7YLepoRE5UI23WYLjEDBm tSZgIFthN507ISnfUPSsXmGqaSlz r4AmQBNuYJOwekDqFErnuvhmmGdg NZXhb4Asfs4mZBZcwcHeYIWkhMLk uVEqv5ErdKjbXLXak1C4JCTcERaa IHyaxr28HSH6BDsoTwjzvYO3BDzz BpkseR4gjQUJZZQMWkvFDpwlmmPm UT9BJHjAZoCRTF91Zf52KFUsADRn kXLpOObeA403y9AygvZ0PIAlSCtw x1wuVWHiTWujq4LcSBrRCLSONQ6W UL3qtHB5R3rDWCASSTgvtQunPpjb wbYxgUPaDkBDyT1mcVpinT3ylZZk A8sevJScxCHjhBuvjoDpUJFqptId PNNly5RlP9Yyx9dfhNRqBSarHezy iHViepC4CZdWKSSDVRxNSvPeIC3o PVdJTERCRUdJTnwzfXtcZmxkcnNs nEFoBsVHeO1rdE2cPAXftZGjkOmw TsymwQQ9DBomUwhtnA2lkPPFSZDX NwvSMuucpzQlOY3SFSyBVY9PzVJ5 p5qsyMAox5q3KVipYKD5sIdaoHQs wsvlyXHajAiwjr85VNV0PWWdMtOq BIIrX2AEANShGQxzQvyhpOE3TVqp GsussL3bsLHCPGOMXwdEVdikqxPy FC2HDSUVCL4RlRW9FShhtII5WP92 CYUqZJXlmRSyANmrS407UHJpYFbh SEl2cvMeZYOoGkCeKqJepMHwKD0S DQUxFmHkHD7AK2OkoIRoYJJjs5Qj MXZmB1Pvx20nZZBywXDtTQLcuNW4 sD4gAJBihJ2lt8JiCOYaKDRwBUOi KROiR04fk5fzbCKsyOV3kAWoHKOz f2HtWygbVPP6qB9oYFngms9jlezd YeW8vDBunDGmpRBqmqYqrj8pJACe ooSwDGLrDWJ6EPpakYDrRNxbIJTl VDZwPVJ2FOOad4Teqq2rSJRvnaEv FPEzX8pkliRuImU7aMVsUsidh1Jj tUHbm8KndShtMMDox3LxXZSlR5Qd o95yIHtfKVPbVLtYdUZbzrzzzCEa r4SxyS8cwED0SLDyF9fvDPy4YgTi qXVwAbNzjGGwJxLdS69tGECkWRB5 YOBerVdaXTiytxKkaFGwPKPhEm82 YFkmVY71NHejQD88BVXtVOdxQF1n IWSyD22nroLzGL2uGRJog2UtUMOz YFTnfdKjPKGfwsNsN5Dpo8AjqOPe jmRxEV7lFRF3hH9xFeAeqVUmRR6R FSVnTIIVXat8IAYoZO2XGLSVKAW5 TBHzOQErceSvoueqbpZhs8LqI4Bt q7ChsNwbBHGje0C1AAUrCKetZDix y3XqXRafOJcdMMMsYKVbZNT5ILQ2 eoIgV1DshM5rwzGjPFBivFmhmNWe wXHtCANlREjpXEdwqMvmkwhoDD1g ORQdv0UfzdaketYywDXgJMOrHBsf YVGpNQNlKpVzuOBsYJ5HFOBtGmKV YPZENP8RIQAXHED1JKGwHIGwoHga mCUuczLfuUGgbCC6PNNiEFGxFrLp TS41wTUqgMFqC4cyQpCQMlzyABYh GMCyr9Qce3PadrothXJla4KrcJ5w iQH0UFOmM3ioPGMwZSEfcFmmjLM9 DOCoHTAsBBCnskH2EMD6AHHYJKwu CcYhBYHfLjWwMCX7MANomCjdDNsr epDroAUkNBUeahVirKEbkQU2QBUn YUOyAAXowdP1GNF3WPLmjz2qkST1 bMNyJfQmVDdbrqvkvAUaYw8oNEMr UkBLMtmruISzr3XsoGryCEXsi6Rr VZRzN6s9DNLtt3DkeuodbwSpq5Zx SHZ1RBE1GZ2aJDZqQQXqcq2geZG1 qYNbVtInZXijC4IrvVGvuZRly8B5 dB9qKgVHXEOcANFcFxobjSPqh8Ky sAyyEFAlm1VlDIrtVzLoIl6xZXIo EyXFIDRxCIXim2S7NZDbFkOhGSSb ZVAuUCF6LPAvn5BhgitsjkSim5Ww ROZ0LJRgAOstTCPtdPPzbiOjxnzb eofhWUC7YYRbaUP6THfxTkV7VFKb RqEjGBJjKPlqAXHacAKya2Y6HHRy b8B9DPOyNMveGBEwyCRueLhreJze SCCmZT6dSGNhFDHkYPG7dA3faxLh ZjS2pAHuJv93ubXwew6izlQfAWH3 cV4tkiHaBqB1bZRkmHKyy2PimEPk KfSooXNouWC0YTSoMNMmr2KpOYHa ksGHTsc5HIFgRuraB3nwQMDyEDrz QTEyLCBhbmQgQTMwIGFyZSBzdWJt rLA1LMEzDd2nVSIsD4EtW4duoGWm xVqjsm1lkYNfMM2UCUNunuYNCyyq G4KLWDigDYChE74ak1IBw4Awd0wx zGlpu2EyzRTcUM20VTBgdRDoOUO1 GX0gvUvsSVNuWFxsPpCgZwADUi3= [employer](s) b0ofdBHjLFYrwEThNKTrOyrleyBy (test code = 9841) DMUdvPRlE1LgrkfhJNhpYX4uYJ5f mKxlcXWgbFNeOUNjNvDzl6azj241 dKIyg7chLOWHxjjynMy8kUnqX10x g2G2HaneZ36psVWyGPQ9MLDrJJAx lKCtZCPoEXH8MTIqnFFpU9ozFRCj IT4fohcmEFgoMMdeZGPfhPS2DVVd jRWuM0OsDEIcWLsgFNQmelx7GgHv Fn8nlDQexOhbACmlVRTzUMFcVEji OAXiWbEiEYQhw9U7NJDcQWiiPRNf Ks7bnFVoRfKLERfdXDM8 Disclaimer (test v6vnkRQxFIHizLXrBuFkTYRbAGTt code = 9844) p1qwNVUuxPWmMlHeCgJnFtXvVlnf bOEtAWFtLlXuj1mbo957gKTso7rb OVEeIpE0wIGfXERmaNQmS463KLOk SZatz3pst3DfBSLbyWSnz7T7LKBZ jaboiGh0aTbyE64cf4M0KjdrU6lh NEWsTELoQ0LvXX8eRCXnCmx1IMJ6 JQR1PIHrGCYoL0XfAB6pMSGljHNu FTv9f6mejWteYBAeVVA6z1gnOWsq shZdFM0qpl4rvQa5o8uxllJvELHa NMQsiQXWTNWuK2NweXilMu9ceWf4 dRfaXjdeRZR4Emi5QF1wia69fev1 xNzaSVFenmupHyF6BFvmXXRqlwyz QJb9OXwkRDPuvGS0DSQpzOLxQ3Sf JYFsOF9jqlf7DER0JXfdYNKdGxL0 OWAvnRHeEFThwJyxXVjbb262VOG0 TsVxXN8gP0Epf9Y9gQ5jdAZmTVOn zFKpSeSlUCLdvo4gzPRkUWzlo0Ku BAQ6atK7cDWghWAmZREmSF17Vnbs r9UsPvxzSXZ1FDAuxbIxx4Cmf2oy WeBypwLuL6ubL7TvSNYpHXXqTQEl UtQbjyLzg8Njx0HubTQpjJr6r6ui RESyYNQxvQytu8fuAYD6OHPgI8L9 oNDft6rhTGhgHAZytDW1lqM7ZWEj aWYjK0TvqZ0oFMJdTS0mner3r5ux UQI9RZzkABHaHsZ4qcV8SGIcxYLo MPGddQkiKRjxe093JYG8BqFyWGZt o2ZpO5SfqLkhU07zgYacI63dOYKi uCdwnM1cmDcthT8tYsQyIdMkFKwz iXzsbQLajjqqYVljhzW5AWmsjgxg AGAfWIpzB3coTcUoITTptJyxZPrr l6XsQVYtGUJgMwbhxrP8IVWPw75x QRKjs3EsKTVshV8gvSVqMVeakcSq bCI2WFqembGpGkKxfcOtTPGcrG0f EPGvMH3lNZFlcxVrhx5higIeNTRi QJPoO1SygfmulPpaanJqFUCchb1b kpLfNWM6IPTTJD8HXGTiTFUym62q ZEQqeVpvcH3awZHlpmPaSIZyv0Zj kS7ngKJWGOLmS1blWB1pHDpnc5Hi dEKsbUOuiPD7FILko1SsVtKwoeDt xTVspSZaL9GskFlnV9xmBTMnDOWy wfGeiNTjh9YqGTUowNC7yNCjLY9Q KdAGe30xIGEdNVLLamEdJCJdyLef fRZ5kwH5dT3rMrJPPbWfqJIvmQOs RdopTNWxr103qr0wwxH6LHWpFBMk yumpr9EbOAAvQNXhiH16TCUkWFQg rw6uipzmuYKzgcAaZ0Oeyhp5uA5q XHBsYWluXGYxXGZzMjJcbGFuZzEw MzNcaGljaFxmMVxkYmNoXGYxXGxv C0ucSaCxMnTbSordOGE5 [facility] CenterAnion [id number] 10:15:28 Test Item Value Reference Range Interpretation Comments Anion Gap (test code 10 See_Comment [Autom ated message] The = 32980-5) system which ge nerated this result transmit errol reference range : 4 - 14 mEq/L. The refe rence range was not used to interpret this result as normal/abnormal . [facility] CenterChloride [id number] 10:15:27 Test Item Value Reference Range Interpretation Comments Chloride (test code = 104 See_Comment [Auto mated message] The ) system which ge nerated this result tra nsmitted reference range : 98 - 107 mEq/L. The refe rence range was not u sed to interpret this result as normal/abnormal . [facility] CenterPotassium [id number] 10:15:26 Test Item Value Reference Range Interpretation Comments Potassium Lvl (test 4.4 See_Comment [Automa errol message] The code = 2823-3) system which generated this result tra nsmitted reference range : 3.5 - 5.1 mEq/L. The reference range was not u sed to interpret this result as normal/abnormal . [facility] [id number] 10:15:25 Test Item Value Reference Range Interpretation Comments Sodium Lvl (test code 136 See_Comment [Auto mated message] The = 2951-2) system which [employer] nerated this result tra nsmitted reference range : 136 - 145 mEq/L. The refe rence range was not used to interpret this result as normal/abnormal . [facility] CenterGlomerular Filtration Rate 2022-12-16 10:15:24 Test Item Value Reference Range Interpretation Comments eGFR (test code = 77 See_Comment The eGFRcr is calculated with 34378-6) the 2020 CKD-EP I creatinine equation using creatinine, patient's age, and sex for adults 18 years of age and older. Other fa ctors, especially musc le mass, may affect accuracy and need to be considered.A ccording to the Kidney Dise ase: Improving Global Outcomes (KDIGO) CKD Work Group 2012 Clinical Practice Guidel ine, chronic kidney disease (CKD) is defined as the abnormalities of kidney struc ture or function, prese nt for more than 3 months, with implications fo r health. CKD should be class ified by cause, GFR codey gory, and albuminuria cat egory. KDIGO guidelines prov ld the following GFR c ategoriesStage Description GFR mL/min/1.73 m2G1* Normal or high >= 90G2* Mildly decrease d 60-89G3a Mildly to moder ately decreased 45-59 G3b Moderately to severely dec reased 30-44G4 Severely decrea sed 15-29G5 Kidney failure <15*In the absence of evid ence of kidney damage, neither G1 nor G2 fulfill criteri a for CKD. [Automated mess age] The system which [employer] nerated this result transmit errol reference range: >=60 mL/ min/1.73 sq. m. The referenc e range was not used to int erpret this result as poornima l/abnormal. [facility].Serum [id number] 10:15:23 Test Item Value Reference Range Interpretation Comments Creatinine (test code = 2160-0) 1.07 mg/dL 0.67-1.17 [facility] CenterBlood Urea [id number] 10:15:22 Test Item Value Reference Range Interpretation Comments BUN (test code = 3094-0) 19 mg/dL 6-23 [facility] CenterGlucose, [id number] 10:15:21 Test Item Value Reference Range Interpretation Comments Glucose Random (test 123 mg/dL 70-199 Effecti ve 03/19/16, the code = 2345-7) glucose refer ence intervals have been updated based o n [place] [employer] makayla delines (Standards of M edical Care in Diabete s 2016. Diabetes Care 2 016; 39: S13-S22).Fastin g blood glucose:Normal: 70-99 mg/dLImpaired f asting glucose (increa sed risk for diabetes or pre-diabetes): 100-125 mg/dLDiabetes m ellitus: >/=126 mg/dL Ra ndom blood glucose:N ormal: 70-199 mg/dLNot e: Random glucose >100 mg /dL is associated with increased risk for diabetes [facility] CenterCarbon Dioxide [id number] 10:15:20 Test Item Value Reference Range Interpretation Comments CO2 (test code = 22 See_Comment [Automated message] The 2028-04) system which ge nerated this result transmit errol reference range : 22 - 29 mEq/L. The refe rence range was not used to interpret this result as normal/abnormal . [facility] CenterHematocrit2023-04-25 09:45:44 Test Item Value Reference Range Interpretation Comments Hct (test code = 4544-3) 37.2 % 40.0-54.0 L Lab Interpretation (test code = Abnormal 66193-1) [facility] CenterHemoglobin2023-04-25 09:45:43 Test Item Value Reference Range Interpretation Comments Hgb (test code = 718-7) 12.6 See_Comment L [Au tomated message] The system whic h generated this result transmitted ref erence range: 14.0 - 1 8.0 gm/dL. The refe rence range was not u sed to interpret this result as normal/abnor mal. Lab Interpretation (test Abnormal code = 14800-3) [facility] CenterTMP Interpretation Antibody Screen [id number] 15:06:40 Test Item Value Reference Range Interpretation Comments TMP Auto Neg At the present ABSC Interp time, patient (test code = plasma shows no ____SILVANA Salazar ORREA 7535) evidence of RBC MD SULLY, P hD - alloantibodies. [id number] d by: Josy SALAS, PhD - [id number] D ate/Time: 12.15.2022 10:0 6 AM CDT Transcribed Abhishek e/Time: 12.15.2022 10:0 6 AM CDTElectronical ly Signed By: SILVANA VIRK MD, PhD - [id number] on 12.15.2022 1 0:06 AM [facility] CenterAntibody [id number] 12:55:40 Test Item Value Reference Range Interpretation Comments ABSC. (test code = 890-4) Negative ABSC [facility] CenterABORh2023-04-24 12:55:39 Test Item Value Reference Range Interpretation Comments ABORh. (test code = 882-1) A POS [facility] CenterClot Expiration [id number] 12:55:33 Test Item Value Reference Range Interpretation Comments T & S Expiration (test code = 12/18/2022 5318) [facility] CenterConfirm [id number] 20:06:38 Test Item Value Reference Range Interpretation Comments ABORh Confirm. (test code = 882-1) A POS [facility] CenterFractionated [id number] 16:25:40 Test Item Value Reference Range Interpretation Comments Bili Total (test 0.5 mg/dL <=1.2 Indocyanine Green (ICG) code = 1975-2) may cause fal sely elevated biliru bin results. Total and direct bilirubin must not be measured from s amples containing indo cyanine green. False el evation of total bilirubin can be seen in patient s with IgG concentrations above 28 g/L.Testing Per formed at [facility] Lab Ambulat ory Care Bldg, [facility] [facility] [address], [facility] [place] [place] [address] Bili Direct (test <=0.3 Indocyanin e Green (ICG) code = 1967-) may cause fal sely elevated biliru bin results. Total and direct bilirubin must not be measured from s amples containing indo cyanine green. Testing Performed at [facility] Lab Ambu latory [facility], [address], [address], [place] [address] Bili Indirect (test See Note 0.0-0.9 Unable t o calculate code = 1970-08) Indirect Bili scott result due to some par ameters are outside rep ortable rangeTesting Pe rformed at [facility] Lab Ambulat ory [facility], [address], [address], [facility], [facility] DumontElectrolyte [id number] 16:25:37 Test Item Value Reference Range Interpretation Comments Sodium Lvl (test code = 140 See_Comment Test ing Performed at [facility] 2951-2) [facility], [address] [place], [place] [address], [place] [address] [Automated mess age] The system which ge nerated this result tra nsmitted reference range : 136 - 145 mEq/L. The reference range was not u sed to interpret this result as normal/abnormal . Potassium Lvl (test 4.0 See_Comment Testing Performed at [facility] code = 2823-3) Lab Ambulator y Care [facility], [address], [address], [place] [address] [Automated mess age] The system which ge nerated this result tra nsmitted reference range : 3.5 - 5.1 mEq/L. The reference range was not u sed to interpret this result as normal/abnormal . Chloride (test code = 106 See_Comment Testin g Performed at [facility] 2074-0) [facility], [facility], [place] [address] [Automated mess age] The system which ge nerated this result tra nsmitted reference range : 98 - 107 mEq/L. The refe rence range was not u sed to interpret this result as normal/abnormal . CO2 (test code = 25 See_Comment Testing Per formed at [facility] 2028-04) [facility], [address], [place] [address] [Automated mess age] The system which ge nerated this result tra nsmitted reference range : 22 - 29 mEq/L. The refe rence range was not u sed to interpret this result as normal/abnormal . Anion Gap (test code = 9 See_Comment Testi ng Performed at [facility] 43752-3) [facility], [address], [place] [address] [Automated mess age] The system which ge nerated this result tra nsmitted reference range : 4 - 14 mEq/L. The refe rence range was not u sed to interpret this result as normal/abnormal . [facility] [id number] 16:25:36 Test Item Value Reference Range Interpretation Comments Total Protein (test 6.7 g/dL 6.4-8.3 Testing Performed at [facility] code = 2885-2) Lab Ambulator y Care [facility], [address], [address], [place] [address] [facility] CenterCalcium [id number] 16:25:35 Test Item Value Reference Range Interpretation Comments Calcium Lvl (test 9.2 mg/dL 8.4-10.2 Testing Pe rformed at code = 17346-8) [facility] Lab Ambu latory Care [facility], [address], [place], [place] [address] [facility] CenterAlkaline [id number] 16:25:34 Test Item Value Reference Range Interpretation Comments Alk Phos (test code = 80 U/L 40-129 Testin g Performed at [facility] 6768-6) [facility], [address], [place] [address] [facility] CenterAlbumin [id number] 16:25:33 Test Item Value Reference Range Interpretation Comments Albumin Lvl (test code 4.1 See_Comment Testi ng Performed at [facility] = 1751-7) [facility], [address], [address], [place] [address] [Automated mess age] The system which ge nerated this result tra nsmitted reference range : 3.5 - 5.2 gm/dL. The refe rence range was not used to interpret this result as normal/abnormal . [facility] CenterAspartate Aminotransferase 2022-12-09 16:25:32 Test Item Value Reference Range Interpretation Comments AST (test code = 29 U/L <=40 Testing Per formed at [facility] 1920-8) [facility], [address], [place] [address] [facility] CenterALT2023-04-18 16:25:31 Test Item Value Reference Range Interpretation Comments ALT (test code = 24 U/L <=41 Testing Per formed at [facility] 1742-6) Lab [facility], [address], [place] [address] [facility] CenterGlucose [id number] 16:25:27 Test Item Value Reference Range Interpretation Comments Glucose Level (test 91 mg/dL 70-99 Effectiv e 03/19/16, the code = 2345-7) glucose refer ence intervals have been updated based o n [employer] [employer] makayla delines (Standards of M edical Care in Diabete s 2016. Diabetes Care 2 016; 39: S13-S22).Fastin g blood glucose:Normal: 70-99 mg/dLImpaired f asting glucose (increa sed risk for diabetes or pre-diabetes): 100-125 mg/dLDiabetes m ellitus: >/=126 mg/dL Ra ndom blood glucose:N ormal: 70-199 mg/dLNot e: Random glucose >100 mg /dL is associated with increased risk for diabetes Testin g Performed at B Lab [facility], [address], [place] [address] [facility] CenterHemoglobin [id number] 16:22:33 Test Item Value Reference Range Interpretation Comments A1C (test code = 5.2 % 4.3-5.6 HbA1c value s >=6.5% are 4548-4) diagnostic of d iabetes mellitus.Diagno sis should be confirmed by repeat testing.Therape utic Action suggested: >8.0 % HbA1c; Goal oftherapy: <7.0% HbA1c [facility] CenterDifferential2023-04-18 15:47:19 Test Item Value Reference Range Interpretation Comments Neutrophil % (test code 66.6 % 42.0-66.0 H As p art of = 770-8) Differential performed at [facility] Lab [facility], [address], [place] [address] Lymphocyte % (test code 20.1 % 24.0-44.0 L = 736-9) Monocyte % (test code = 9.9 % 2.0-7.0 H 5905-5) Eosinophil % (test code 2.1 % 1.0-4.0 = 713-8) Basophil % (test code = 0.6 % 0.0-1.0 706-2) IGRE % (test code = 0.7 % 0.0-0.4 H IGRE % c ount includes 68017-9) Metamyelocytes, Myelocytes, and Promyelocytes. As part of Differe ntial performed at [facility] Lab [facility], [address], [place] [address] Neutrophil Abs (test 5.51 K/uL 1.70-7.30 code = 751-8) Lymphocyte Abs (test 1.66 K/uL 1.00-4.80 code = 731-0) Monocyte Abs (test code 0.82 K/uL 0.08-0.70 H = 742-7) Eosinophil Abs (test 0.17 K/uL 0.04-0.40 code = 711-2) Basophil Abs (test code 0.05 K/uL 0.00-0.10 = 704-7) IG Abs (test code = 0.06 K/uL 0.00-0.04 H 84080-8) Lab Interpretation Abnormal (test code = 59673-2) [facility].[id number] 15:47:08 Test Item Value Reference Range Interpretation Comments WBC (test code = 8.3 K/uL 4.0-11.0 6690-2) RBC (test code = 789-8) 4.81 See_Comment [Au tomated message] The system [employer] generated this result transmitted ref erence range: 4.50 - 6 .00 M/uL. The refer ence range was not u sed to interpret this result as normal/abnor mal. Hgb (test code = 718-7) 14.6 See_Comment As p art of CBC or as an individual orderable testi ng performed at [facility], [address], [place] [address] [Automate d message] The sy stem which generated this result transmit errol reference range : 14.0 - 18.0 gm/dL. T he reference range was not used to int erpret this result as normal/abnormal . Hct (test code = 44.1 % 40.0-54.0 As part of CBC or as 4544-3) an individual orderable testi ng performed at [facility], [address], [place] [address] MCV (test code = 787-2) 92 fL 82-98 MCH (test code = 785-6) 30.4 pg 27.0-31.0 MCHC (test code = 33.1 See_Comment [Automate d message] 786-4) The system [employer] generated this result transmitted ref erence range: 31.0 - 3 6.0 gm/dL. The refe rence range was not u sed to interpret this result as normal/abnor mal. RDW-SD (test code = 43.3 fL 35.1-46.3 44824-0) RDW-CV (test code = 13.0 % 12.0-15.5 788-0) Platelet count (test 218 K/uL 140-440 As part of CBC or as code = 777-3) an individual orderable testi ng performed at [facility] Lab [facility], [address], [place] [address] MPV (test code = 10.9 fL 4.0-10.4 H 57886-7) INRBC (test code = 0.0 % <=0.0 The INRBC (instrument 66286-3) NRBC) value ref lects the enumeration of nucleated red b lood cells contained in a 200uL sampleof whole blood analyzed by the instrument. Thi s value maydiffer from the NRBC value repo rted in a manual differential,wh ich is based on a 100 cell differential. A s part of CBC testing performed at [facility] Lab [facility] [address], [place] [address] Lab Interpretation Abnormal (test code = 95757-7) [facility] DumontMR, PELVIS, WITHOUT / WITH IV [id number] 19:38:00Need 3T MRI of the prostate to assess and characterize known high volume but low grade disease with PSA 3.1 cT2b on rightUnlisted Reason for Exam - Click Yes and Enter Reason Below->YesUnlisted Reason for Exam->Cancer of prostate w/low recurrence risk (T1-1a Mars<7 \T\ [facility]<10[facility] : 1955 Sex: MFINAL REPORT EXAM: MRI Prostate WITH And WITHOUT Contrast CLINICAL HISTORY: Unlisted Reason for ExamCancer of prostate w/low recurrence risk (T1-1a Mars<7 \T\ PSA<10 PSA: N/AFree PSA: N/ADRE: N/Ad COMPARISON: None available. TECHNIQUE: MRI PROSTATE PROTOCOL. Multiplanar multi-sequence imaging of the prostate was then performed using a small field of view. Axial T1 weighted, axial T2 weighted, sagittal T2 weighted, oblique coronal T2 weighted, and diffusion weighted images are provided for interpretation. An ADC map was also calculated and provided. In addition to the small field of view prostate imaging, a large field of view of the entire pelvis from the superior iliac crests to the inferior pubic rami were obtained on axial T1 and T2 weighted sequences. Dynamic, post gadolinium T1-weighted spoiled gradient echo scans through the prostate were acquired. Using a large edpec-ah-pkkn, the entire pelvis to the level of the aortic bifurcation was imaged with the following sequences: post-contrast fat suppressed T1-weighted, diffusion weighted, fat suppressed T2-weighted. IV Contrast: 8 mL of Gadavist gadolinium. FINDINGS:Image quality is satisfactory. PROSTATE: Size of total gland: 3.4 x 2.9 x 3.9 cm. Total volume 25 cc. BPH: There are a few BPH nodules within the transition zone including an extruded nodule along the periphery of the right transition zone near the base.Previous TURP: NoFocal calcifications are difficult to visualize by MRI Transition zone: Normal,BPH , Ill-defined low signal on T2-weighted images, hemorrhage , early enhancement with washout, area of restricted diffusion Peripheral Zone: A 12 mm focus of restricted diffusion in the left anteriorlateral peripheral zone near the apex (image eight, series 700) with associated moderate T2 hypointensity. There is early postcontrast enhancement. No extracapsular extension. Neurovascular bundles intact. SEMINAL VESICLES:Unremarkable. EXTRACAPSULAR EXTENSION: No extracapsular extension identified. NEUROVASCULAR BUNDLES: Intact. BLADDER: Normal appearance. LYMPH NODES: No pelvic lymphadenopathy. BONES/BONE MARROW: Normal bone marrow signal intensity. No fractures. No suspicious bone lesion. Bowel: Diverticulosis without diverticulitis. IMPRESSION: 1. Suspicious 12 mm lesion within the left apex (PI-RADS 4- probably malignant). 2. No pelvic metastatic disease. 3. Benign prostatic hypertrophy. PI-RADS: 1- benign; 2 - most probably benign;3 - intermediate; 4 - probably malignant;5 - highly suspicious of malignancy Standardized MRI prostate reporting scheme, PI-RADS 2 includes T2, diffusion weighted imaging, DCE, and/or MRI spectroscopy. Signed: Kaz Lopez Verified Date/Time: 12/14/2020 19:38:31 Reading Location: [facility] [id number] Reading Room
[2023-02-17] MEDS ORDERED: NA CHLORIDE 0.9% 2,000 ML ONE (06:39)
[2023-02-17] MEDS ORDERED: FAMOTIDINE 20 MG/2 ML VIAL IV ONE (06:39)
[2023-02-17 06:52] LABS: Absolute Lymphocytes (CBC) 1.2 K/uL (0.7-4.9); Hematocrit 40.2 % (39.6-49.0); Lymphocytes % 19.4 % (15.3-44.8); MCV 90.5 fL (80-100); MPV 8.7 fL (7.6-11.3); RBC Red Blood Cell Count 4.45 M/uL (4.33-5.43)
[2023-02-17 06:53] LABS: Protime INR 1.06
[2023-02-17 07:07] LABS: Albumin 3.2 g/dL (3.4-5.0); Bilirubin Direct 0.1 mg/dL (0-0.2); Bilirubin Indirect, Calculated 0.4 mg/dL (0.2-0.8); Bilirubin Total 0.5 mg/dL (0.2-1.0); Magnesium 2.5 mg/dL (1.6-2.4); Potassium 3.6 mEq/L (3.5-5.1); Protein, Total 6.3 g/dL (6.4-8.2)
[2023-02-17 07:29] LABS: SARS-CoV-2 Antigen Rapid Res Negative (Negative)
--- NOTE | 2023-02-17 07:32 | RAD REPORT ---
EXAM DESCRIPTION: CT - Chest For Pe Angio - 02/17/2023 7:23 am CLINICAL HISTORY: Chest pain. CHEST PAIN COMPARISON: No comparisons TECHNIQUE: CT angiogram of the pulmonary arteries was performed with MIP. All CT scans are performed using dose optimization technique as appropriate and may include automated exposure control or mA/KV adjustment according to patient size. FINDINGS: No evidence of pulmonary thromboembolism. No acute aortic finding demonstrated. Mild diffuse COPD is present. No significant pericardial or pleural fluid. No concerning bony finding. IMPRESSION: No evidence of pulmonary thromboembolism. Moderate diffuse COPD.
--- NOTE | 2023-02-17 07:41 | RAD REPORT ---
EXAM DESCRIPTION: CTAbdomen Pelvis W Contrast - 02/17/2023 7:23 am CLINICAL HISTORY: Abdominal pain. ABD PAIN COMPARISON: <Comparisons> TECHNIQUE: Biphasic CT imaging of the abdomen and pelvis was performed with 100 ml non-ionic IV cont rast. All CT scans are performed using dose optimization technique as appropriate and may include automated exposure control or mA/KV adjustment according to patient size. FINDINGS: Mild linear opacities are present in both posterior lung bases. The liver, spleen, pancreas, adrenal glands and kidneys are within normal limits. No bowel obstruction, free air, free fluid or abscess. Moderate stool is retained throughout the colo n. Colonic diverticulosis is seen without diverticulitis. The appendix is normal. No evidence of sig nificant lymphadenopathy. Mild lumbosacral degenerative changes. IMPRESSION: No acute intra-abdominal or pelvic finding. Colonic diverticulosis without diverticuliti s.
--- NOTE | 2023-02-17 07:52 | RAD REPORT ---
EXAM DESCRIPTION: US - Extrem Venous W Compress Adrian - 02/17/2023 7:46 am CLINICAL HISTORY: PAIN Bilateral leg edema and swelling. COMPARISON: No comparisons TECHNIQUE: Real-time sonographic interrogation of the left and right lower extremity deep venous sys tems was performed. FINDINGS: Normal compressibility, flow augmentation, phasic flow and spontaneous flow is identified in both the left and right lower extremity deep venous systems. IMPRESSION: No sonographic evidence of left or right lower extremity deep venous thrombosis.
--- NOTE | 2023-02-17 07:53 | RAD REPORT ---
EXAM DESCRIPTION: US - Abdomen Exam Limited - 02/17/2023 7:46 am CLINICAL HISTORY: ABD PAIN COMPARISON: No comparisons FINDINGS: The gallbladder demonstrates no gallstones. No pericholecystic fluid or gallbladder wall t hickening. The common bile duct is normal measuring 4 mm. The liver demonstrates no findings of intrahepatic biliary dilatation. IMPRESSION: Unremarkable examination.
--- NOTE | 2023-02-17 08:10 | RAD REPORT ---
EXAM DESCRIPTION: RAD - Chest Single View - 02/17/2023 7:56 am CLINICAL HISTORY: DYSPNEA Chest pain. COMPARISON: No comparisons FINDINGS: Portable technique limits examination quality. The lungs are grossly clear. The heart is normal in size. No displaced fractures. IMPRESSION: No acute intrathoracic process suspected.
[2023-02-17 09:25] LABS: Urine Bilirubin NEGATIVE (Negative); Urine Blood Negative (Negative); Urine Clarity Clear (Clear); Urine Color Colorless (Yellow); Urine Glucose NEGATIVE (Negative); Urine Protein NEGATIVE (Negative); Urine Urobilinogen Normal (Normal); Urine pH 5.5 (5.0-7.0)
[2023-02-17 09:26] LABS: Specific Gravity > 1.030 (1.005-1.030)
--- NOTE | 2023-02-17 09:35 | EDPHYS ---
Physician Documentation [facility] Name: Jesus Szymanski Age: 68 yrs Sex: Male : 1955 Arrival Date: 02/17/2023 Time: 05:35 Bed 18 Private MD: ED Physician Chaz Gallardo HPI: 02/17 06:26 This 68 yrs old Male presents to ER via EMS with complaints of dyspnea, ana maria sweatting. 06:26 The patient has shortness of breath at rest. Onset: The symptoms/episode began/occurred ana maria just prior to arrival. Duration: The symptoms are continuous, but are steadily getting better. The patient's shortness of breath has no apparent modifying factors. awoke hot , sob and sweatty. Associated signs and symptoms: Pertinent positives: non-productive cough, diaphoresis. Severity of symptoms: At their worst the symptoms were moderate in the emergency department the symptoms have improved mildly. The patient has experienced a previous episode, last year. 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 - Social history:: Smoking status: Patient denies any tobacco usage or history of. - Family history:: not pertinent. ROS: 06:26 Constitutional: Negative for fever, chills, and weight loss, Eyes: Negative for injury, ana maria pain, redness, and discharge, ENT: Negative for injury, pain, and discharge, Neck: Negative for injury, pain, and swelling, Cardiovascular: Negative for chest pain, palpitations, and edema, Abdomen/GI: Negative for abdominal pain, nausea, vomiting, diarrhea, and constipation, Back: Negative for injury and pain, : Negative for injury, bleeding, discharge, and swelling, MS/Extremity: Negative for injury and deformity, Skin: Negative for injury, rash, and discoloration, Neuro: Negative for headache, weakness, numbness, tingling, and seizure, Psych: Negative for depression, anxiety, suicide ideation, homicidal ideation, and hallucinations, Allergy/Immunology: Negative for hives, rash, and allergies, Endocrine: Negative for neck swelling, polydipsia, polyuria, polyphagia, and marked weight changes, Hematologic/Lymphatic: Negative for swollen nodes, abnormal bleeding, and unusual bruising. 06:26 Respiratory: Positive for shortness of breath. 06:26 Skin: Positive for diaphoresis. Exam: 06:26 Constitutional: This is a well developed, well nourished patient who is awake, alert, ana maria and in no acute distress. Head/Face: Normocephalic, atraumatic. Eyes: Pupils equal round and reactive to light, extra-ocular motions intact. Lids and lashes normal. Conjunctiva and sclera are non-icteric and not injected. Cornea within normal limits. Periorbital areas with no swelling, redness, or edema. ENT: Nares patent. No nasal discharge, no septal abnormalities noted. Tympanic membranes are normal and external auditory canals are clear. Oropharynx with no redness, swelling, or masses, exudates, or evidence of obstruction, uvula midline. Mucous membranes moist. Neck: Trachea midline, no thyromegaly or masses palpated, and no cervical lymphadenopathy. Supple, full range of motion without nuchal rigidity, or vertebral point tenderness. No Meningismus. Chest/axilla: Normal chest wall appearance and motion. Nontender with no deformity. No lesions are appreciated. Cardiovascular: Regular rate and rhythm with a normal S1 and S2. No gallops, murmurs, or rubs. Normal PMI, no JVD. No pulse deficits. Respiratory: Lungs have equal breath sounds bilaterally, clear to auscultation and percussion. No rales, rhonchi or wheezes noted. No increased work of breathing, no retractions or nasal flaring. Abdomen/GI: Soft, non-tender, with normal bowel sounds. No distension or tympany. No guarding or rebound. No evidence of tenderness throughout. Back: No spinal tenderness. No costovertebral tenderness. Full range of motion. Skin: Warm, dry with normal turgor. Normal color with no rashes, no lesions, and no evidence of cellulitis. MS/ Extremity: Pulses equal, no cyanosis. Neurovascular intact. Full, normal range of motion. Neuro: Awake and alert, GCS 15, oriented to person, place, time, and situation. Cranial nerves II-XII grossly intact. Motor strength 5/5 in all extremities. Sensory grossly intact. Cerebellar exam normal. Normal gait. Psych: Awake, alert, with orientation to person, place and time. Behavior, mood, and affect are within normal limits. 07:11 ECG was reviewed by the Attending Physician. [facility] Vital Signs: 05:35 BP 133 / 69; Pulse 50; Resp 15 S; Temp 97.6; Pulse Ox 95% on R/A; Weight 91.17 kg; ha1 Height 6 ft. 1 in. ; 06:30 BP 140 / 61; Pulse 97; Resp 18 S; Pulse Ox 96% on R/A; ha1 07:07 BP 130 / 63; Pulse 51; Resp 18; Pulse Ox 100% on R/A; ld1 07:58 BP 146 / 72; Pulse 47; Resp 16; Pulse Ox 97% on R/A; ld1 08:58 BP 139 / 71 Supine; Pulse 49; ld1 09:01 BP 148 / 76 Sitting; Pulse 54; ld1 09:05 BP 135 / 79 Standing; Pulse 50; ld1 05:35 Body Mass Index 26.52 (91.17 kg, 185.42 cm) ha1 MDM: 05:57 Patient medically screened. [facility] 06:30 Differential diagnosis: Anemia asthma, Bronchitis CHF exacerbation, Chronic Obstructive ana maria Pulmonary Disease pneumonia, pulmonary edema, Pulmonary Embolism reactive airway disease, Sepsis Unstable Angina. Antibiotic administration: Not indicated. Differential Diagnosis sepsis, flu. Immunization status: Pneumococcal vaccine: within last 5 years. Influenza vaccine: within last 5 years. Data reviewed: vital signs, nurses notes, EMS record, lab test result(s), EKG, radiologic studies, CT scan, doppler, plain films. Consideration of Admission/Observation Escalation of care including admission/observation considered. I considered the following discharge prescriptions or medication management in the emergency department Medications were administered in the Emergency Department. See MAR. Test considered but Not performed: Ultrasound no cardio echo. Care significantly affected by the following chronic conditions: prostrate , jami cardia. 09:50 ED course: I assumed care at shift change. Patient's symptoms seem to be more rt vertiginous than near syncopal per his description. I did perform a hints exam that shows about 2-3 beats of left going nystagmus, head impulse and test of skew were negative, patient has no other focal neurologic deficits, urinalysis is unremarkable. 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 He also states that the symptoms are most likely vertiginous in nature compared to cardiogenic. Patient is asymptomatic in the ED with stable vital signs, no orthostasis, is ambulatory without difficulty. Patient stable for discharge with outpatient follow-up, return precautions were discussed. 02/17 06:25 Order name: Basic Metabolic Panel; Complete Time: 07:12 [facility] 02/17 06:25 Order name: CBC with Diff; Complete Time: 07:12 [facility] 02/17 06:25 Order name: LFT's; Complete Time: 07:12 [facility] 02/17 06:25 Order name: Magnesium; Complete Time: 07:12 [facility] 02/17 06:25 Order name: NT PRO-BNP; Complete Time: 07:12 [facility] 02/17 06:25 Order name: PT-INR; Complete Time: 07:12 [facility] 02/17 06:25 Order name: Troponin HS; Complete Time: 07:12 [facility] 02/17 06:25 Order name: Lipase; Complete Time: 07:12 [facility] 02/17 06:25 Order name: Blood Culture Adult (2) [facility] 02/17 06:25 Order name: Lactate w/ 2H reflex if indic.; Complete Time: 07:25 [facility] 02/17 06:25 Order name: Urinalysis w/ reflexes; Complete Time: 09:32 [facility] 02/17 06:25 Order name: SARS RAPID; Complete Time: 07:29 [facility] 02/17 06:25 Order name: Flu; Complete Time: 07:29 [facility] 02/17 06:25 Order name: XRAY Chest (1 view); Complete Time: 08:12 [facility] 02/17 06:25 Order name: CT Chest For PE Angio; Complete Time: 08:12 [facility] 02/17 06:25 Order name: US Extremity Venous W Compression Adrian; Complete Time: 08:12 [facility] 02/17 07:13 Order name: US Abdomen Limited; Complete Time: 08:12 [facility] 02/17 07:13 Order name: CT Abd/Pelvis - IV Contrast Only; Complete Time: 08:12 [facility] 02/17 06:25 Order name: EKG; Complete Time: 06:26 [facility] 02/17 06:25 Order name: Cardiac monitoring; Complete Time: 07:00 [facility] 02/17 06:25 Order name: EKG - Nurse/Tech; Complete Time: 07:00 [facility] 02/17 06:25 Order name: IV Saline Lock; Complete Time: 06:54 [facility] 02/17 06:25 Order name: Labs collected and sent; Complete Time: 07:00 [facility] 02/17 06:25 Order name: O2 Per Protocol; Complete Time: 07:00 [facility] 02/17 06:25 Order name: O2 Sat Monitoring; Complete Time: 07: [facility] 02/17 08:43 Order name: Orthostatics; Complete Time: 09:06 rt EC:11 Rate is 51 beats/min. Rhythm is regular. QRS Hilbert is Normal. [place] interval is normal. QRS ana maria interval is normal. QT interval is normal. No Q waves. T waves are Normal. No ST changes noted. Clinical impression: Sinus bradycardia and No evidence of ischemia. Interpreted by me. Reviewed by me. Administered Medications: : Drug: Famotidine IVP 20 mg Route: IVP; Site: right antecubital; 1 06:30 Drug: NS 0.9% IV 1000 ml Route: IV; Rate: 1 bolus; Site: right antecubital; ha1 06:30 Drug: NS 0.9% IV 1000 ml Route: IV; Rate: 125 ml/hr; Site: right antecubital; ha1 Disposition Summary: 02/17/23 09:33 Discharge Ordered Location: Home rt Problem: new rt Symptoms: are resolved rt Condition: Stable rt Diagnosis - Benign paroxysmal vertigo, unspecified ear rt Followup: rt - With: Private Physician - When: 2 - 3 days - Reason: Discharge Instructions: - Discharge Summary Sheet rt - Benign Positional Vertigo rt Forms: - Medication Reconciliation Form rt - Thank You Letter rt - Antibiotic Education rt - Prescription Opioid Use rt - [email or web address] rt Signatures: Dispatcher [employer] Devin Garcia MD MD cha Ayala, Heidy, RN RN 1 Chaz Gallardo MD MD rt
--- NOTE | 2023-02-17 09:35 | ER ---
Nurse's Notes [facility] Name: Jesus Szymanski Age: 68 yrs Sex: Male : 1955 Arrival Date: 02/17/2023 Time: 05:35 Bed 18 Private MD: Diagnosis: Benign paroxysmal vertigo, unspecified ear Presentation: 02/17 05:35 Chief complaint: EMS states: 68 year old male reports feeling sweaty, clammy, and ha1 generalized weakness. Blood glucose was 136. Heart rate 50 but that is his normal. 05:35 Method Of Arrival: EMS: [facility] ha1 05:35 Coronavirus screen: Vaccine status: Patient reports receiving the 2nd dose of the covid ha1 vaccine. Ebola Screen: No symptoms or risks identified at this time. Initial Sepsis Screen: Does the patient meet any 2 criteria? No. Patient's initial sepsis screen is negative. Does the patient have a suspected source of infection? No. Patient's initial sepsis screen is negative. Risk Assessment: Do you want to hurt yourself or someone else? Patient reports no desire to harm self or others. Onset of symptoms was February 17, 2023. 05:35 Acuity: YELITZA 3 ha1 Triage Assessment: 05:35 General: Appears comfortable, Behavior is calm, cooperative. Pain: Denies pain. Neuro: ha1 Level of Consciousness is awake, alert, obeys commands, Oriented to person, place, time, situation. Neuro: Reports weakness. Cardiovascular: Patient's skin is warm and dry. Cardiovascular: Rhythm is sinus bradycardia. Respiratory: Airway is patent Respiratory effort is even, unlabored, Respiratory pattern is regular, symmetrical. GI: Abdomen is flat, non-distended, Bowel sounds present X 4 quads. Reports vomiting. : No signs and/or symptoms were reported regarding the genitourinary system. Derm: Skin is healthy with good turgor, Skin is clammy, diaphoretic, Skin is pale. Musculoskeletal: Circulation, motion, and sensation intact. 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 - Social history:: Smoking status: Patient denies any tobacco usage or history of. - Family history:: not pertinent. Screenin:35 [facility] ED Fall Risk Assessment (Adult) History of falling in the last 3 months, ha1 including since admission No falls in past 3 months (0 pts) Confusion or Disorientation No (0 pts) Intoxicated or Sedated No (0 pts) Altered Elimination No (0 pt) Score/Fall Risk Level 0 - 2 = Low Risk Oriented to surroundings, Maintained a safe environment, Educated pt \T\ family on fall prevention, incl call for assistance when getting out of bed. Abuse screen: Denies threats or abuse. Denies injuries from another. Nutritional screening: No deficits noted. Tuberculosis screening: No symptoms or risk factors identified. Assessment: 05:35 Reassessment: see triage assessment. ha1 06:30 Reassessment: Patient and/or family updated on plan of care and expected duration. Pain ha1 level reassessed. Patient is alert, oriented x 3, equal unlabored respirations, skin warm/dry/pink. Patient states feeling better. Patient states symptoms have improved. 07:59 Reassessment: Patient appears in no apparent distress at this time. No changes from ld1 previously documented assessment. Patient and/or family updated on plan of care and expected duration. Pain level reassessed. Patient is alert, oriented x 3, equal unlabored respirations, skin warm/dry/pink. Vital Signs: 05:35 BP 133 / 69; Pulse 50; Resp 15 S; Temp 97.6; Pulse Ox 95% on R/A; Weight 91.17 kg; ha1 Height 6 ft. 1 in. ; 06:30 BP 140 / 61; Pulse 97; Resp 18 S; Pulse Ox 96% on R/A; ha1 07:07 BP 130 / 63; Pulse 51; Resp 18; Pulse Ox 100% on R/A; ld1 07:58 BP 146 / 72; Pulse 47; Resp 16; Pulse Ox 97% on R/A; ld1 08:58 BP 139 / 71 Supine; Pulse 49; ld1 09:01 BP 148 / 76 Sitting; Pulse 54; ld1 09:05 BP 135 / 79 Standing; Pulse 50; ld1 05:35 Body Mass Index 26.52 (91.17 kg, 185.42 cm) ha1 ED Course: 05:35 Patient arrived in ED. 2 05:35 Patient has correct armband on for positive identification. Bed in low position. Call ha1 light in reach. Side rails up X 1. 05:46 Triage completed. ha1 05:57 Devin Rausch MD is Attending Physician. ana maria 06:54 Blood Culture Adult (2) Sent. bc6 06:54 Inserted saline lock: 20 gauge in left antecubital area, using aseptic technique. bc6 07:00 Susu Cabrera, RN is Primary Nurse. ha1 07:00 Basic Metabolic Panel Sent. ha1 07:00 LFT's Sent. ha1 07:00 Magnesium Sent. ha1 07:00 NT PRO-BNP Sent. ha1 07:01 Blood Culture Adult (2) Sent. ha1 07:03 Flu Sent. ld1 07:03 SARS RAPID Sent. ld1 07:25 CT Chest For PE Angio In Process Unspecified. EDMS 07:25 CT Abd/Pelvis - IV Contrast Only In Process Unspecified. EDMS 07:29 Attending Physician role handed off by Devin Rausch MD rt 07:29 Chaz Gallardo MD is Attending Physician. rt 07:48 US Extremity Venous W Compression Adrian In Process Unspecified. EDMS 07:48 US Abdomen Limited In Process Unspecified. EDMS 07:58 XRAY Chest (1 view) In Process Unspecified. EDMS 09:53 Arm band placed on. eh3 09:53 No provider procedures requiring assistance completed. IV discontinued, intact, eh3 bleeding controlled, No redness/swelling at site. Pressure dressing applied. Administered Medications: 06:25 Drug: Famotidine IVP 20 mg Route: IVP; Site: right antecubital; ha1 06:30 Drug: NS 0.9% IV 1000 ml Route: IV; Rate: 1 bolus; Site: right antecubital; ha1 06:30 Drug: NS 0.9% IV 1000 ml Route: IV; Rate: 125 ml/hr; Site: right antecubital; ha1 Medication: 09:53 VIS not applicable for this client. eh3 Outcome: 09:33 Discharge ordered by . rt 09:53 Discharged to home ambulatory, with significant other. eh3 09:53 Condition: stable 09:53 Discharge instructions given to patient, family, Instructed on discharge instructions, follow up and referral plans. Demonstrated understanding of instructions, follow-up care. 09:53 Patient left the ED. eh3 Signatures: Dispatcher [employer] EDMS Devin Rausch MD MD cha Penn, Gladis, RN RN ld1 Jenna Fajardo Erin, RN RN eh3 Susu Cabrera RN RN ha1 Chaz Gallardo MD MD rt Keren Landry 6
[2023-02-17 10:12] VITALS: TEMP 97.6
[2023-02-17 10:20] VITALS: O2SAT 97
[2023-02-17 10:23] VITALS: BP 135/79
--- NOTE | 2023-02-17 20:36 | EKG ---
Test Date: 2023-02-17 Test Time: 06:18:38 Senior Enterprise Architect: LOYDA MEASUREMENT RESULTS: Intervals: Rate: 51 MI: 184 QRSD: 102 QT: 504 QTc: 464 [place]: P: 61 MI: 184 QRS: 49 T: 78 INTERPRETIVE STATEMENTS: Sinus bradycardia Otherwise normal ECG Compared to ECG 07/15/2005 09:02:00 Sinus rhythm no longer present Second-degree AV block, Mobitz type I (Wenckebach) no longer present Electronically Signed On 02-17-23 20:32:45 CDT by Willard Alicia
== END 2023-02-17 09:53 | disposition home or self-care (01) ==
LOC: ER 05:35
DX: H81.10 Benign paroxysmal vertigo, unspecified ear (principal); Z20.822 Contact with and (suspected) exposure to COVID-19
CPT/HCPCS: 93005; 87040 ×2; 85025; 80048; 36415; 83735; 85610; 80076; 83605; 81003; 84484; 83690; 83880; 87804 ×2; 71275; 74177; 71045; 93970; 76705; 87811; Q9967; J7030